=== PATIENT | male | born 1950 | race Caucasian/White ===

== ENCOUNTER 2016-10-18 14:20 | Emergency (ER) | payer OTHER ==
[~2016-10-18] VITALS: Ht 180.3 cm; Wt 138.3 kg
--- NOTE | ~2016-10-18 | EKG ---
[place], [place] ELECTROCARDIOGRAM REPORT NAME: ROBBIE DUQUE UNIT #: [id number] ROOM: DOCTOR: KB UNDERWOOD MD BIRTHDATE: [birth year] DOS: 10/18/2016 TIME: 15:23. Sinus rhythm with first degree AV block, low voltage precordial leads, non-specific T-wave flattening, abnormal electrocardiogram. KB UNDERWOOD MD CM:EKGRPT:ELECTROCARDIOGRAM REPORT 1107 1201 KB UNDERWOOD MD
[~2016-10-18 14:20] MED LIST: ASCRIPTIN1 TA1 PO; ASPIRIN81 M1 PO; CIPRO500 MG PO; COLACE100 MG PO; CRESTOR5 MG PO; DURAGESIC 50 M50 MCG TD; ERGOCALCIFER50000 IU PO; FLAGYL500 MG PO; FLEXERIL10 MG PO; GABAPENTIN TAB600 MG PO; GABAPENTIN400 M1 PO; GLIPIZIDE10 MG PO; HCTZ/LISINOPRIL1 TA1 PO; HCTZ/TRIAMTEREN1 TA3 PO; HYDROCODONE BIT1 T11 PO; IMDUR60 MG PO; ISOSORBIDE MONO60 MG PO; ISOSORBIDE30 MG PO; LANTUS100 U/ML SC; LASIX40 MG PO; LISINOPRIL/HCTZ1 TA1 PO; LOPRESSOR25 MG PO; MAG-OX 400400 MG PO; METFORMIN HCL1000 MG PO; METFORMIN500 MG PO; MOTRIN800 MG PO; NEURONTIN800 MG PO; NOVOLOG FLEX100 U/ML SC; OMEPRAZOLE D/R20 MG PO; PERCOCET 325 MG1 TA7 PO; PREDNICOT20 MG PO; PROZAC20 MG PO; VENLAFAXINE75 MG PO; VIBRAMYCIN100 MG PO; VICODIN 5/500 505 MG PO; VICODIN ES 7501 TAB PO; VITAMIN D1000 IU PO; [UNRECOGNIZED DRUG - OTHER] PO
[2016-10-18 14:34] VITALS: BP 167/88
[2016-10-18 15:21] LABS: BASO % 0.5 % (0.0-1.0); EOS # 0.4 10*3/uL (0.0-0.4); EOS % 4.7 % (1.0-4.0); HEMATOCRIT 40.7 % (42.0-52.0); HEMOGLOBIN 12.8 g/dl (14.0-18.0); LYMPH # 1.8 10*3/uL (1.3-4.4); LYMPH % 23.4 % (27.0-41.0); MEAN CELL VOLUME 84.4 fl (80.0-94.0); MEAN CORPUSCULAR HGB 26.6 pg (27.0-31.0); MEAN CORPUSCULAR HGB CONC 31.4 g/dl (33.0-37.0); MEAN PLATELET VOLUME 12.7 fl (9.6-12.3); MONO # 0.4 10*3/uL (0.1-1.0); MONO % 5.9 % (3.0-9.0); NEUT # 4.9 10*3/uL (2.3-7.9); NEUT % 65.1 % (47.0-73.0); PLATELET COUNT AUTOMATED 147 10*3/uL (130-400); RED BLOOD COUNT 4.82 10*6/uL (4.50-5.90); WHITE BLOOD COUNT 7.5 10*3/uL (4.8-10.8)
[2016-10-18 15:39] LABS: ALBUMIN 3.6 gm/dl (3.1-4.5); ALKALINE PHOSPHATASE 111 U/L (45-117); BILIRUBIN, TOTAL 0.6 mg/dl (0.2-1.0); BUN 15 mg/dl (7-24); CARBON DIOXIDE 36 mmol/L (21-32); CHLORIDE 101 mmol/L (98-107); EST GLOM FILT AFRICAN AMERICAN > 60 ml/min; GLUCOSE 114 mg/dL (65-99); MAGNESIUM 1.6 mg/dL (1.5-2.1); POTASSIUM 4.2 mmol/L (3.5-5.1); SGOT/AST 15 IU/L (3-35); SGPT/ALT 25 U/L (12-78); SODIUM 141 mmol/L (136-145)
[2016-10-18 15:40] LABS: TROPONIN I < 0.015 ng/ml (<0.045)
[2016-10-18 16:26] LABS: BILIRUBIN NEGATIVE (NEGATIVE); BLOOD NEGATIVE (NEGATIVE); CLARITY CLEAR (CLEAR); COLOR YELLOW (YELLOW); GLUCOSE NEGATIVE (NEGATIVE); KETONE TRACE (NEGATIVE); LEUKO ESTERASE NEGATIVE (NEGATIVE); NITRITE NEGATIVE (NEGATIVE); PROTEIN TRACE (NEGATIVE)
[2016-10-18 16:38] LABS: BACTERIA TRACE; MUCOUS 1+; RBC 0-2 rbc/hpf (0-2); URINE REFLEX COMMENT NO (NO); WBC 0-2 wbc/hpf (0-5)
== END 2016-10-18 17:26 | disposition left against medical advice (07) ==
LOC: ED 14:20
PROVIDERS: Family Medicine Adult Medicine
DX: R44.3 Hallucinations, unspecified (principal); E53.8 Deficiency of other specified B group vitamins; I25.10 Atherosclerotic heart disease of native coronary artery without angina pectoris; F32.9 Major depressive disorder, single episode, unspecified; K21.9 Gastro-esophageal reflux disease without esophagitis; E11.40 Type 2 diabetes mellitus with diabetic neuropathy, unspecified; E66.01 Morbid (severe) obesity due to excess calories; E11.65 Type 2 diabetes mellitus with hyperglycemia; E55.9 Vitamin D deficiency, unspecified; Z68.41 Body mass index [BMI] 40.0-44.9, adult; Z90.49 Acquired absence of other specified parts of digestive tract; Z79.82 Long term (current) use of aspirin; Z79.899 Other long term (current) drug therapy; Z88.0 Allergy status to penicillin; Z88.8 Allergy status to other drugs, medicaments and biological substances

== ENCOUNTER 2017-01-13 12:53 | Emergency (ER) | payer OTHER ==
[~2017-01-13] VITALS: Ht 180.3 cm; Wt 132.9 kg
[2017-01-13] MEDS ORDERED: CAPSAICIN42.5 GM T (13:20)
[2017-01-13] MEDS ORDERED: IMDUR SA60 M1 PO (13:20)
[2017-01-13] MEDS ORDERED: NEURONTIN300 MG PO (13:21)
[2017-01-13] MEDS ORDERED: PROZAC20 MG PO (13:21)
[2017-01-13] MEDS ORDERED: SYMBICORT1 AE1 INH (13:21)
[2017-01-13] MEDS ORDERED: VENTOLIN 02.5 MG/3 M INH (13:22)
[2017-01-13] MEDS ORDERED: CRESTOR5 MG PO (13:22)
[2017-01-13] MEDS ORDERED: OMEPRAZOLE D/R20 MG PO (13:23)
[2017-01-13] MEDS ORDERED: NOVOLOG FLEX100 U/ML SC (13:23)
[2017-01-13] MEDS ORDERED: LANTUS100 U/ML SC (13:24)
[2017-01-13] MEDS ORDERED: LASIX40 MG PO (13:24)
[2017-01-13] MEDS ORDERED: METFORMIN500 MG PO (13:25)
[2017-01-13] MEDS ORDERED: ASPIRIN81 M1 PO (13:25)
[2017-01-13] MEDS ORDERED: VITAMIN D31000 IU PO (13:25)
[2017-01-13] MEDS ORDERED: CINNAMON PLUS1 EACH PO (13:26)
[2017-01-13] MEDS ORDERED: COLACE100 MG PO (13:26)
[2017-01-13 14:08] LABS: BASO % 0.4 % (0.0-1.0); EOS # 0.4 10*3/uL (0.0-0.4); EOS % 4.1 % (1.0-4.0); HEMOGLOBIN 13.1 g/dl (14.0-18.0); IG # 0.1 10*3/uL (0.0-0.1); LYMPH # 1.5 10*3/uL (1.3-4.4); LYMPH % 14.4 % (27.0-41.0); MEAN CELL VOLUME 83.3 fl (80.0-94.0); MEAN CORPUSCULAR HGB 26.6 pg (27.0-31.0); MEAN PLATELET VOLUME 11.8 fl (9.6-12.3); MONO # 0.7 10*3/uL (0.1-1.0); MONO % 6.5 % (3.0-9.0); NEUT # 7.7 10*3/uL (2.3-7.9); NEUT % 73.9 % (47.0-73.0); PLATELET COUNT AUTOMATED 162 10*3/uL (130-400); RED BLOOD COUNT 4.92 10*6/uL (4.50-5.90); RED CELL DISTRI WIDTH 14.1 % (0-14.5); WHITE BLOOD COUNT 10.4 10*3/uL (4.8-10.8)
[2017-01-13 14:20] LABS: ALBUMIN 3.3 gm/dl (3.1-4.5); ALKALINE PHOSPHATASE 95 U/L (45-117); BILIRUBIN, TOTAL 1.6 mg/dl (0.2-1.0); BUN 15 mg/dl (7-24); CARBON DIOXIDE 31 mmol/L (21-32); CHLORIDE 98 mmol/L (98-107); EST GLOM FILT AFRICAN AMERICAN > 60 ml/min; GLUCOSE 90 mg/dL (65-99); POTASSIUM 3.9 mmol/L (3.5-5.1); SGOT/AST 17 IU/L (3-35); SGPT/ALT 25 U/L (12-78); SODIUM 137 mmol/L (136-145)
[2017-01-13 14:23] LABS: BILIRUBIN NEGATIVE (NEGATIVE); BLOOD NEGATIVE (NEGATIVE); CLARITY CLEAR (CLEAR); COLOR YELLOW (YELLOW); GLUCOSE NEGATIVE (NEGATIVE); KETONE NEGATIVE (NEGATIVE); LEUKO ESTERASE NEGATIVE (NEGATIVE); NITRITE NEGATIVE (NEGATIVE); PROTEIN NEGATIVE (NEGATIVE)
[2017-01-13 14:42] LABS: BACTERIA TRACE; RBC 0-2 rbc/hpf (0-2); WBC 0-2 wbc/hpf (0-5)
[2017-01-13 15:01] VITALS: BP 116/64
[2017-01-13] MEDS ORDERED: Motrin,Rufen800 MG PO (15:40)
[2017-01-13] MEDS ORDERED: LEVOFLOXACIN500 MG PO (15:51)
== END 2017-01-13 15:57 | disposition home or self-care (01) ==
LOC: ED 12:53
PROVIDERS: Emergency Medicine
DX: J18.1 Lobar pneumonia, unspecified organism (principal); N43.3 Hydrocele, unspecified; I10 Essential (primary) hypertension; I25.10 Atherosclerotic heart disease of native coronary artery without angina pectoris; E11.40 Type 2 diabetes mellitus with diabetic neuropathy, unspecified; K21.9 Gastro-esophageal reflux disease without esophagitis; E78.2 Mixed hyperlipidemia; Z79.4 Long term (current) use of insulin; Z88.0 Allergy status to penicillin; Z88.8 Allergy status to other drugs, medicaments and biological substances; Z79.82 Long term (current) use of aspirin; Z79.899 Other long term (current) drug therapy

== ENCOUNTER → 2017-01-24 | Outpatient (CLI) | payer OTHER ==
[~2017-01-24] MED LIST changes: +CAPSAICIN42.5 GM T; +CINNAMON PLUS1 EACH PO; +IMDUR SA60 M1 PO; +LEVOFLOXACIN500 MG PO; +Motrin,Rufen800 MG PO; +NEURONTIN300 MG PO; +SYMBICORT1 AE1 INH; +VENTOLIN 02.5 MG/3 M INH; +VITAMIN D31000 IU PO
[2017-01-24 15:08] LABS: BASO % 0.3 % (0.0-1.0); EOS # 0.4 10*3/uL (0.0-0.4); EOS % 3.9 % (1.0-4.0); HEMOGLOBIN 13.8 g/dl (14.0-18.0); IG # 0.1 10*3/uL (0.0-0.1); LYMPH # 1.7 10*3/uL (1.3-4.4); MEAN CELL VOLUME 84.3 fl (80.0-94.0); MEAN CORPUSCULAR HGB 27.1 pg (27.0-31.0); MEAN CORPUSCULAR HGB CONC 32.1 g/dl (33.0-37.0); MEAN PLATELET VOLUME 12.5 fl (9.6-12.3); MONO # 0.5 10*3/uL (0.1-1.0); NEUT # 7.4 10*3/uL (2.3-7.9); NEUT % 73.1 % (47.0-73.0); PLATELET COUNT AUTOMATED 175 10*3/uL (130-400); WHITE BLOOD COUNT 10.1 10*3/uL (4.8-10.8)
[2017-01-24 15:28] LABS: ALBUMIN 3.5 gm/dl (3.1-4.5); BILIRUBIN, TOTAL 0.6 mg/dl (0.2-1.0); BUN 17 mg/dl (7-24); CARBON DIOXIDE 34 mmol/L (21-32); CHLORIDE 95 mmol/L (98-107); EST GLOM FILT AFRICAN AMERICAN > 60 ml/min; GLUCOSE 193 mg/dL (65-99); POTASSIUM 4.1 mmol/L (3.5-5.1); SGOT/AST 14 IU/L (3-35); SGPT/ALT 27 U/L (12-78); SODIUM 140 mmol/L (136-145)
[2017-01-24 15:32] LABS: ALKALINE PHOSPHATASE 94 U/L (45-117)
== END | disposition home or self-care (01) ==
LOC: LAB 14:28 → CT 15:00
PROVIDERS: Urology
DX: D40.0 Neoplasm of uncertain behavior of prostate (principal); I10 Essential (primary) hypertension; N43.3 Hydrocele, unspecified; N50.819 Testicular pain, unspecified; M47.9 Spondylosis, unspecified

== ENCOUNTER 2017-02-21 03:57 | Inpatient (IN) | payer OTHER ==
[~2017-02-21] VITALS: Ht 180.3 cm; Wt 132.2 kg
[2017-02-21] VITALS (11 sets, daily range): BP systolic 102–150; BP diastolic 59–80
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
[2017-02-21 04:16] LABS: BASO # 0.1 10*3/uL (0.0-0.1); BASO % 0.6 % (0.0-1.0); EOS # 0.5 10*3/uL (0.0-0.4); EOS % 4.3 % (1.0-4.0); HEMATOCRIT 41.3 % (42.0-52.0); HEMOGLOBIN 13.4 g/dl (14.0-18.0); LYMPH # 2.6 10*3/uL (1.3-4.4); LYMPH % 24.3 % (27.0-41.0); MEAN CELL VOLUME 83.3 fl (80.0-94.0); MEAN CORPUSCULAR HGB CONC 32.4 g/dl (33.0-37.0); MEAN PLATELET VOLUME 12.5 fl (9.6-12.3); MONO # 0.6 10*3/uL (0.1-1.0); MONO % 5.5 % (3.0-9.0); NEUT % 64.9 % (47.0-73.0); PLATELET COUNT AUTOMATED 180 10*3/uL (130-400); RED BLOOD COUNT 4.96 10*6/uL (4.50-5.90); RED CELL DISTRI WIDTH 14.3 % (0-14.5); WHITE BLOOD COUNT 10.9 10*3/uL (4.8-10.8)
[2017-02-21 04:33] LABS: ALBUMIN 3.5 gm/dl (3.1-4.5); ALKALINE PHOSPHATASE 108 U/L (45-117); BILIRUBIN, TOTAL 0.8 mg/dl (0.2-1.0); BUN 14 mg/dl (7-24); CARBON DIOXIDE 31 mmol/L (21-32); CHLORIDE 99 mmol/L (98-107); EST GLOM FILT AFRICAN AMERICAN > 60 ml/min; GLUCOSE 173 mg/dL (65-99); MAGNESIUM 1.3 mg/dL (1.5-2.1); POTASSIUM 4.4 mmol/L (3.5-5.1); SGOT/AST 21 IU/L (3-35); SGPT/ALT 24 U/L (12-78); SODIUM 139 mmol/L (136-145)
[2017-02-21 04:34] LABS: TROPONIN I < 0.015 ng/ml (<0.045)
[2017-02-21] MEDS ORDERED: EUCERIN1 CRE T (06:34)
[2017-02-21] MEDS ORDERED: B121000 MCG/2 IM (06:39)
[2017-02-21] MEDS ORDERED: OXYGEN NAS (06:40)
[2017-02-21] MEDS ORDERED: VITAMIN D350000 UNIT PO ×2 (06:40→15:20)
[2017-02-21] MEDS ORDERED: IBUPROFEN400 MG PO (06:41)
[2017-02-21] MEDS ORDERED: ATIVAN1 MG PO (15:20)
[2017-02-21] MEDS ORDERED: INDOMETHACIN25 M1 PO (15:22)
[2017-02-21] MEDS ORDERED: LISINOPRIL10 M1 PO (15:23)
== END 2017-02-21 16:38 | disposition home or self-care (01) | DRG 194 ==
LOC: ED 03:57 → EDHOLD 04:56 → 4E 04:56
PROVIDERS: Emergency Medicine Emergency Medical Services
DX: J18.1 Lobar pneumonia, unspecified organism (principal); J96.10 Chronic respiratory failure, unspecified whether with hypoxia or hypercapnia; E11.42 Type 2 diabetes mellitus with diabetic polyneuropathy; I11.0 Hypertensive heart disease with heart failure; I50.9 Heart failure, unspecified; Z68.41 Body mass index [BMI] 40.0-44.9, adult; R07.89 Other chest pain; I25.10 Atherosclerotic heart disease of native coronary artery without angina pectoris; K21.9 Gastro-esophageal reflux disease without esophagitis; F41.9 Anxiety disorder, unspecified; F32.9 Major depressive disorder, single episode, unspecified; E11.40 Type 2 diabetes mellitus with diabetic neuropathy, unspecified; E11.618 Type 2 diabetes mellitus with other diabetic arthropathy; I25.118 Atherosclerotic heart disease of native coronary artery with other forms of angina pectoris; E55.9 Vitamin D deficiency, unspecified; E78.2 Mixed hyperlipidemia; E66.01 Morbid (severe) obesity due to excess calories; Z83.3 Family history of diabetes mellitus; Z84.89 Family history of other specified conditions; Z99.81 Dependence on supplemental oxygen; Z88.0 Allergy status to penicillin; Z88.1 Allergy status to other antibiotic agents; Z79.82 Long term (current) use of aspirin; Z79.4 Long term (current) use of insulin; Z79.84 Long term (current) use of oral hypoglycemic drugs; Z79.899 Other long term (current) drug therapy; Z90.49 Acquired absence of other specified parts of digestive tract; Z95.818 Presence of other cardiac implants and grafts

== ENCOUNTER 2017-03-23 05:43 | Emergency (ER) | payer OTHER ==
[~2017-03-23] VITALS: Ht 180.3 cm; Wt 133.8 kg
--- NOTE | ~2017-03-23 | EKG ---
[place], [place] ELECTROCARDIOGRAM REPORT NAME: ROBBIE DUQUE UNIT #: [id number] ROOM: DOCTOR: ZHANG MCNEAL,MAICO BIRTHDATE: [birth year] DOS: 03/23/2017 TIME: 6:27 a.m. CONCLUSION: Normal sinus rhythm. MAICO HOLCOMB MD CM:EKGRPT:ELECTROCARDIOGRAM REPORT 1240 1451 MAICO HOLCOMB MD
[~2017-03-23 05:43] MED LIST changes: +ATIVAN1 MG PO; +B121000 MCG/2 IM; +EUCERIN1 CRE T; +IBUPROFEN400 MG PO; +INDOMETHACIN25 M1 PO; +LISINOPRIL10 M1 PO; +OXYGEN NAS; -VITAMIN D31000 IU PO; +VITAMIN D31000 UNI1 PO; +VITAMIN D350000 UNIT PO
[2017-03-23 06:31] LABS: BASO % 0.5 % (0.0-1.0); EOS # 0.4 10*3/uL (0.0-0.4); EOS % 4.8 % (1.0-4.0); HEMOGLOBIN 13.4 g/dl (14.0-18.0); LYMPH # 1.8 10*3/uL (1.3-4.4); LYMPH % 22.6 % (27.0-41.0); MEAN CORPUSCULAR HGB 26.8 pg (27.0-31.0); MEAN CORPUSCULAR HGB CONC 31.9 g/dl (33.0-37.0); MEAN PLATELET VOLUME 11.8 fl (9.6-12.3); MONO # 0.5 10*3/uL (0.1-1.0); MONO % 6.1 % (3.0-9.0); NEUT # 5.3 10*3/uL (2.3-7.9); NEUT % 65.6 % (47.0-73.0); PLATELET COUNT AUTOMATED 147 10*3/uL (130-400); RED CELL DISTRI WIDTH 14.2 % (0-14.5); WHITE BLOOD COUNT 8.1 10*3/uL (4.8-10.8)
[2017-03-23 06:40] LABS: ACT PARTIAL THROMBO TIME 24.5 SECONDS (20.8-31.5)
[2017-03-23 06:50] LABS: ALBUMIN 3.5 gm/dl (3.1-4.5); ALKALINE PHOSPHATASE 112 U/L (45-117); BUN 20 mg/dl (7-24); CHLORIDE 100 mmol/L (98-107); CREATININE 1.02 mg/dL (0.70-1.30); MAGNESIUM 1.5 mg/dL (1.5-2.1); POTASSIUM 4.9 mmol/L (3.5-5.1); SGOT/AST 14 IU/L (3-35); SGPT/ALT 23 U/L (12-78); SODIUM 138 mmol/L (136-145); TOTAL PROTEIN 6.9 gm/dL (6.4-8.2)
[2017-03-23 06:52] LABS: TROPONIN I < 0.015 ng/ml (<0.045)
[2017-03-23 06:58] VITALS: BP 136/63
== END 2017-03-23 08:24 | disposition home or self-care (01) ==
LOC: ED 05:43
PROVIDERS: Student in an Organized Health Care Education/Training Program
DX: I15.9 Secondary hypertension, unspecified (principal); I25.10 Atherosclerotic heart disease of native coronary artery without angina pectoris; E11.40 Type 2 diabetes mellitus with diabetic neuropathy, unspecified; K21.9 Gastro-esophageal reflux disease without esophagitis; E78.2 Mixed hyperlipidemia; Z88.0 Allergy status to penicillin; Z88.8 Allergy status to other drugs, medicaments and biological substances; Z79.82 Long term (current) use of aspirin; Z79.899 Other long term (current) drug therapy; Z79.4 Long term (current) use of insulin

== ENCOUNTER 2017-03-26 15:29 | Inpatient (IN) | payer OTHER ==
[~2017-03-26] VITALS: Ht 180.3 cm; Wt 134.8 kg
--- NOTE | ~2017-03-26 | EKG ---
[place], [place] ELECTROCARDIOGRAM REPORT NAME: ROBBIE DUQUE UNIT #: [id number] ROOM: 415 DOCTOR: JOSEPH RODRIGUEZ MD,KENA BIRTHDATE: [birth year] DOS: 03/26/2017 ELECTROCARDIOGRAM The procedure was done on 03/26/2017 at 1623 hours. Normal sinus rhythm was noted with a heart rate of 79 beats per minute. Mild nonspecific ST-T changes were noted in II, III and aVF leads of unknown clinical significance. Otherwise, the electrocardiogram was noted as normal. KENA RUIZ MD CM:EKGRPT:ELECTROCARDIOGRAM REPORT 1210 1228 KENA RODRIGUEZ MD
[2017-03-26 15:40] VITALS: BP 119/76
[2017-03-26 16:38] LABS: BASO # 0.1 10*3/uL (0.0-0.1); BASO % 0.6 % (0.0-1.0); EOS # 0.4 10*3/uL (0.0-0.4); EOS % 4.1 % (1.0-4.0); HEMATOCRIT 39.5 % (42.0-52.0); HEMOGLOBIN 12.5 g/dl (14.0-18.0); LYMPH # 2.2 10*3/uL (1.3-4.4); LYMPH % 23.5 % (27.0-41.0); MEAN CELL VOLUME 84.2 fl (80.0-94.0); MEAN CORPUSCULAR HGB 26.7 pg (27.0-31.0); MEAN CORPUSCULAR HGB CONC 31.6 g/dl (33.0-37.0); MEAN PLATELET VOLUME 12.4 fl (9.6-12.3); MONO # 0.6 10*3/uL (0.1-1.0); MONO % 6.2 % (3.0-9.0); NEUT # 6.2 10*3/uL (2.3-7.9); NEUT % 65.2 % (47.0-73.0); PLATELET COUNT AUTOMATED 162 10*3/uL (130-400); RED BLOOD COUNT 4.69 10*6/uL (4.50-5.90); WHITE BLOOD COUNT 9.5 10*3/uL (4.8-10.8)
[2017-03-26 16:50] LABS: ACT PARTIAL THROMBO TIME 23.5 SECONDS (20.8-31.5)
[2017-03-26 16:57] LABS: ALBUMIN 3.5 gm/dl (3.1-4.5); ALKALINE PHOSPHATASE 103 U/L (45-117); BUN 17 mg/dl (7-24); CHLORIDE 99 mmol/L (98-107); CKMB 1.3 ng/ml (0.5-3.6); CPK 58 U/L (39-308); CREATININE 0.93 mg/dL (0.70-1.30); MAGNESIUM 1.4 mg/dL (1.5-2.1); POTASSIUM 4.3 mmol/L (3.5-5.1); SGOT/AST 21 IU/L (3-35); SGPT/ALT 26 U/L (12-78); SODIUM 142 mmol/L (136-145); TOTAL PROTEIN 6.9 gm/dL (6.4-8.2)
[2017-03-26 17:02] LABS: BILIRUBIN NEGATIVE (NEGATIVE); BLOOD NEGATIVE (NEGATIVE); CLARITY CLEAR (CLEAR); COLOR YELLOW (YELLOW); GLUCOSE NEGATIVE (NEGATIVE); KETONE NEGATIVE (NEGATIVE); LEUKO ESTERASE NEGATIVE (NEGATIVE); NITRITE NEGATIVE (NEGATIVE); UROBILINOGEN 0.2 E.U./dl (0.2-1.0)
[2017-03-26 17:06] LABS: ACETAMINOPHEN (TYLENOL) < 2.0 ug/ml (10-30); ETHYL ALCOHOL < 3.0 mg/dl (<3); TROPONIN I < 0.015 ng/ml (<0.045)
[2017-03-26 17:12] LABS: URINE AMPHETAMINES < 1000 (1000ng/ml); URINE BARBITURATES < 200 (200ng/ml); URINE BENZODIAZEPINES < 200 (200ng/ml); URINE CANNABINOIDS (THC) < 50 (50ng/ml); URINE COCAINE < 300 (300ng/ml); URINE METHADONE < 300 (300ng/ml); URINE OPIATES < 300 (300ng/ml)
[2017-03-26 17:21] LABS: BACTERIA TRACE; RBC 0-2 rbc/hpf (0-2); WBC 0-2 wbc/hpf (0-5)
[2017-03-26 17:23] LABS: URINE PHENCYCLIDINE < 25 (25ng/ml)
[2017-03-26 18:52] VITALS: BP 137/75
--- NOTE | 2017-03-26 19:07 | NUR ---
REPORT TO CLAUDIO MONTANO. FLOOR REPORT WAS CALLED TO KOMAL PUCKETT AT 1827. AFTER HANGING IV MEDS ON PT AND HELPING PT WITH A FEW THINGS,TIME CAME TO 1900 AND [facility] FLOOR REQUESTED WE COULD WAIT TIL 193 TO TAKE PT UPSTAIRS.--NETTIE HYDE RN
--- NOTE | 2017-03-26 19:30 | NUR ---
A 66, admitted to , under the services of CIERRA Luevano DO with a diagnosis of ATAXIA,HTN. Chief complaint is DIZZINESS. Patient arrived via stretcher from ER. Monitor applied. Initial assessment completed. Vital signs taken and recorded. CIERRA LUEVANO DO notified of admission to the unit. Orders received. See assessment for past medical history, medications and allergies. Patient and/or family oriented to unit. [facility] visitation policy reviewed. Clothing/patient valuable form completed. ARCADIO TOVAR
[2017-03-26 20:00] VITALS: BP 137/75; BP 152/85
[2017-03-26] MEDS ORDERED: INDOMETHACIN25 M1 PO (20:09)
[2017-03-26] MEDS ORDERED: FUROSEMIDE40 MG PO (20:11)
[2017-03-26] MEDS ORDERED: VITAMIN D22000 UNIT PO (20:16)
--- NOTE | 2017-03-26 20:27 | NUR ---
MED REC COMPLETED USING A VA LIST AND PATIENT.
[2017-03-26 21:45] VITALS: BP 170/81
--- NOTE | 2017-03-26 22:00 | NUR ---
DR VELAZQUEZ AWARE OF PATIENT BEING DIZZY AND LIGHTHEADED TRANSFERRING FROM LAYING TO SITTING. PATIENT ALMOST FELL BACKWARDS ON THE BED DUE TO BEING DIZZY. ORDER FOR LITER BOLUS AT THIS TIME
--- NOTE | 2017-03-26 22:10 | NUR ---
SPOKE WITH DR VELAZQUEZ ABOUT PATIENT'S BLOOD PRESSURE BEING ELEVATED BEFORE GIVING THE LITER BOLUS. STATES HE WILL CANCEL THE BOLUS AT THIS TIME
--- NOTE | 2017-03-26 22:24 | NUR ---
24 HR chart check completed.
[2017-03-27] VITALS (9 sets, daily range): BP systolic 104–188; BP diastolic 57–86
--- NOTE | 2017-03-27 00:36 | NUR ---
DR VELAZQUEZ AWARE OF PATIENT COMPLAINING OF TOES FEELING "SWOLLEN". EDEMA NOTED IN TOES ON BILATERAL FEET. NO EDEMA NOTED IN ANKLES OR LEGS. ORDER TO TURN FLUIDS OFF AT THIS TIME
--- NOTE | 2017-03-27 00:58 | NUR ---
PATIENT IV FLUIDS OFF. TEDS AND SLIP PROOF SOCKS ON. PATIENT SITTING UP IN RECLINER CHAIR AT BEDSIDE WATCHING TV. OXYGEN INTACT. AMBULATED FROM BED TO CHAIR WITH THIS RN. PT C/O LIGHTHEADEDNESS UPON STANDING. CHAIR LOCKED, BED IN LOWEST POSITION, CALL LIGHT IN REACH
--- NOTE | 2017-03-27 01:59 | NUR ---
DR VELAZQUEZ AWARE OF PATIENT C/O ANXIOUSNESS AND SHAKINESS. PATIENT ASKING ABOUT HIS HOME ATIVAN. ORDER TO CONTINUE ATIVAN AT THIS TIME
--- NOTE | 2017-03-27 02:20 | NUR ---
PATIENT MEDICATED WITH PRN ATIVAN FOR ANXIOUSNESS. REQUESTING JORGE HOSE OFF AT THIS TIME
[2017-03-27 06:47] LABS: BASO % 0.5 % (0.0-1.0); EOS # 0.4 10*3/uL (0.0-0.4); EOS % 4.6 % (1.0-4.0); HEMATOCRIT 38.2 % (42.0-52.0); HEMOGLOBIN 12.2 g/dl (14.0-18.0); LYMPH % 23.7 % (27.0-41.0); MEAN CELL VOLUME 85.7 fl (80.0-94.0); MEAN CORPUSCULAR HGB 27.4 pg (27.0-31.0); MEAN CORPUSCULAR HGB CONC 31.9 g/dl (33.0-37.0); MEAN PLATELET VOLUME 12.3 fl (9.6-12.3); MONO # 0.6 10*3/uL (0.1-1.0); MONO % 6.6 % (3.0-9.0); NEUT # 5.3 10*3/uL (2.3-7.9); NEUT % 64.2 % (47.0-73.0); PLATELET COUNT AUTOMATED 132 10*3/uL (130-400); RED BLOOD COUNT 4.46 10*6/uL (4.50-5.90); RED CELL DISTRI WIDTH 14.2 % (0-14.5); WHITE BLOOD COUNT 8.3 10*3/uL (4.8-10.8)
[2017-03-27 06:53] LABS: BUN 17 mg/dl (7-24); CHLORIDE 99 mmol/L (98-107); CHOLESTEROL 125 mg/dL (<200); CREATININE 0.86 mg/dL (0.70-1.30); HDL CHOLESTEROL 28 mg/dl (40-60); LDL CHOLESTEROL 48 mg/dL (9-159); MAGNESIUM 1.9 mg/dL (1.5-2.1); PHOSPHOROUS 3.6 mg/dL (2.5-4.9); POTASSIUM 4.2 mmol/L (3.5-5.1); SODIUM 142 mmol/L (136-145); TRIGLYCERIDES 243 mg/dl (<150); VLDL CHOLESTEROL 49 mg/dL (6-40)
--- NOTE | 2017-03-27 08:52 | NUR ---
PHYSICAL THERAPY PAtient with Doctors at this time. Jen Barron,PT
--- NOTE | 2017-03-27 09:00 | NUR ---
Clinical Program Coordinator in to talk to patient. Patient states lives at home with alone. There are few steps in the home. Physician: [facility] Patient's level of ADLs: MINIMAL ASSIST Patient has working utilities: all working DME: cane, walker, home oxygen, portable tanks, nebulizer Follow-up physician's appointment after d/c: will be made by hospitalist nurse director upon discharge Does patient want to access PORTAL?: no Discharge plan discussed with patient, patient lives at home alone, has help from his ex , patient states he has all of the equipement he needs at home, ex present, she states patient will be going back home when able and denies any home needs. MARLEEN EVANS
--- NOTE | 2017-03-27 10:00 | NUR ---
REVIEWED MED LIST WITH PT, PT UNSURE OF ALL MEDS AND DOSAGES.
--- NOTE | 2017-03-27 11:32 | NUR ---
patient wanted [facility] billed [facility] stay, notified business office, patient also has [employer] as secondary insurance, insurance demos given to automated system emailed corporate fax team fax number for clinicals
--- NOTE | 2017-03-27 11:43 | NUR ---
DR WILLIS IN TO SEE PT AT THIS TIME.
--- NOTE | 2017-03-27 12:45 | NUR ---
case management received a call from jacinta Mahajandirector internal communications at [place], she requested patient's information be faxed, faxed patient's information, per Keyshawn, no beds available at [facility] today
--- NOTE | 2017-03-27 12:45 | NUR ---
PHYSICAL THERAPY PAtient evaluated on 4, full evaluation to follow. Continue with PT as per plan of care with fall, blood pressure and vertigo difficulties precuations. Will require SNF versus in-patient rehab for impaired mobility. PAtient is moderate complexity via chart review, tests and evaluation: 26226. Thank you for this referral. Jen Barron;OliverioT
--- NOTE | 2017-03-27 14:00 | NUR ---
SPOKE WITH DR LANDAVERDE REGARDING PT'S Q2 BP IN BILATERAL ARMS OF L-180/81, R- 170/71. NO NEW ORDERS.
--- NOTE | 2017-03-27 16:53 | NUR ---
CALLED TO NOTIFY DR LANDAVERDE OF PT'S Q2 BP, L ARM- 159/57, R-173/74. STATES IT IS OK TO START DOING BP NOW Q4, THEY DON'T NEED TO BE CALLED WITH EACH RESULT.
--- NOTE | 2017-03-27 20:00 | NUR ---
PATIENT SITTING IN CHAIR AT BEDSIDE. NO NEEDS MADE. NO S/S OF DISTRESS. BED IN LOWEST POSITION, CALL LIGHT IN REACH
--- NOTE | 2017-03-27 23:42 | NUR ---
MEDICATED WITH PRN ATIVAN FOR C/O ANXIOUSNESS
[2017-03-27] MEDS ORDERED: PROZAC40 M1 PO (23:48)
[2017-03-28] VITALS: BP 138/85; BP 172/80
--- NOTE | 2017-03-28 01:48 | NUR ---
PATIENT RESTING IN BED WITH NO S/S OF DISTRESS/ RESPS EASY AND REGULAR. MEDICATION SEEMS EFFECTIVE
[2017-03-28 06:13] LABS: BASO # 0.1 10*3/uL (0.0-0.1); BASO % 0.6 % (0.0-1.0); EOS # 0.4 10*3/uL (0.0-0.4); EOS % 4.5 % (1.0-4.0); HEMATOCRIT 40.4 % (42.0-52.0); HEMOGLOBIN 13.1 g/dl (14.0-18.0); LYMPH # 1.8 10*3/uL (1.3-4.4); MEAN CELL VOLUME 85.4 fl (80.0-94.0); MEAN CORPUSCULAR HGB 27.7 pg (27.0-31.0); MEAN CORPUSCULAR HGB CONC 32.4 g/dl (33.0-37.0); MEAN PLATELET VOLUME 12.1 fl (9.6-12.3); MONO # 0.5 10*3/uL (0.1-1.0); MONO % 5.5 % (3.0-9.0); NEUT # 6.7 10*3/uL (2.3-7.9); PLATELET COUNT AUTOMATED 147 10*3/uL (130-400); RED BLOOD COUNT 4.73 10*6/uL (4.50-5.90); RED CELL DISTRI WIDTH 14.1 % (0-14.5); WHITE BLOOD COUNT 9.6 10*3/uL (4.8-10.8)
[2017-03-28 06:44] LABS: BUN 13 mg/dl (7-24); CHLORIDE 98 mmol/L (98-107); POTASSIUM 4.2 mmol/L (3.5-5.1); SODIUM 138 mmol/L (136-145)
[2017-03-28 06:46] LABS: CREATININE 0.84 mg/dL (0.70-1.30)
[2017-03-28 08:00] VITALS: BP 152/78; BP 154/86
--- NOTE | 2017-03-28 09:07 | NUR ---
PHYSICAL THERAPY Humberto seen this AM 1:1 for his physical therapy session. Pt's BP in his right arm was 154/86, left arm 152/79. Transfer supine/sit with slight vertigo with transfer, sit/stand standing balance up on wheeled walker MOD A X 1. Gait 8' to pt's bedside chair W/W and MOD A X 1, and sit. Then sit/stand up on wheeled walker for standing balance and marching in place to tolerance MIN A X 1, sit to rest. Followed by gait with wheeled walker 12' X 1, on 2 L o2, was not SOB, MOD A X 1, no LOB slight vertigo which he said is a little better this morning, Pt up in his bedside chair, call light no complaint. RYAN SALDANA SEWING LINE BALER.
--- NOTE | 2017-03-28 10:36 | NUR ---
Patient and asked for a referral to be made to [facility]. Contacted [facility] and faxed referral. waiting on acceptance.
--- NOTE | 2017-03-28 10:41 | NUR ---
case management visits with patient and ex , discussed with them physical therapy recommendations of a [facility] [place] [facility] for [facility], patient and ex are inagreement, they chose [facility], cyber policy and strategy planner will send referral to [facility]. patient will also need an insurance precert prior to discharge
[2017-03-28 12:00] VITALS: BP 135/64; BP 148/59
--- NOTE | 2017-03-28 12:48 | NUR ---
PHYSICAL THERAPY Back this PM to gait Humberto and Pt was up in his bedside chair and was very sleepy wanting to fall asleep, present. B/P 138/64, transfer sit/stand MOD A X 1, standing balance with wheeled walker MIN A X 1, Gait with W/W 14' X 1, MOD A X 1, into marching in place in front of his bedside chair MOD A X 1, and no LOB. Humberto just very sleepy and wanting to sleep right now, Pt with call light and going to stay, treatment time 17 min. RYAN SALDANA PECAN SHELLER.
--- NOTE | 2017-03-28 13:52 | NUR ---
Occupational Therapy evaluation completed this date on 4 with full eval to follow. Ex- present upon arrival and assisted with interview questions as patient was lethargic and slow to respond. Precautions include fall risk, neuropathy both feet,impaired blood pressure; high and low,high complexity level. IV UE. Recommend OT per POC and SNF upon d/c to enable return home. Thank you for this referral. Cheryl White OTR/l
--- NOTE | 2017-03-28 14:48 | NUR ---
[facility] accepted this patient, all information faxed, starting precert. Waiting for auth.
--- NOTE | 2017-03-28 14:58 | NUR ---
PASS/RR completed online in [employer] system
[2017-03-28 16:00] VITALS: BP 132/68
--- NOTE | 2017-03-28 17:32 | NUR ---
IV INFLITRATED AFTER CT SCAN. SITE REMOVED. PT ASKED THAT NEW IV NOT BE PLACED. DR LANDAVERDE CALLED AND STATES OK TO LEAVE IV OUT.
[2017-03-28 20:00] VITALS: BP 147/64
--- NOTE | 2017-03-28 20:00 | NUR ---
AAOX3 RESTING IN BED WITH HOB SLIGHTLY ELEVATED. SKIN WARM & DRY. 02 INTACT AT 2 LITERS VIA NASAL CANNULA. LUNGS CLEAR; NO COUGH NOTED. NO HEP LOCK. PT. STATES THAT HE IS VOIDING WITHOUT DIFFICULTY & HAD 2 BM'S TODAY. NO DISTRESS NOTED; CALL LIGHT WITHIN REACH.
--- NOTE | 2017-03-28 23:19 | NUR ---
MEDICATED WITH ATIVAN FOR ANXIETY PER PT'S REQUEST/M.D. ORDERS.
[2017-03-29] VITALS: BP 161/79
--- NOTE | 2017-03-29 00:30 | NUR ---
RESTING; ATIVAN GIVEN EARLIER APPARENTLY EFFECTIVE.
[2017-03-29 05:00] VITALS: BP 155/83
--- NOTE | 2017-03-29 05:30 | NUR ---
BLOOD SUGAR 162.
[2017-03-29 08:00] VITALS: BP 164/81
--- NOTE | 2017-03-29 09:00 | NUR ---
case management visits with patient, patient was referred to [facility], waiting on precert
--- NOTE | 2017-03-29 10:11 | NUR ---
PHYSICAL THERAPY Humberto seen this AM 1:1 for his therapy session. Pt moved to 428-1 now. Said that he was feeling a little better today. Transfer supine/sit MIN A X 1, sitting balance X 6 min supervision x 1, with improvement in his vertigo. Sit/stand and standing balance with wheeled walker X 2 min with CGA X 1. Followed by gait 19' X 2, with one sitting rest and MOD BIOINFORMATICS COMPUTER SCIENTIST X 1, with W/W and verbal cueing for gait, walker safety and turns. Pt up in his bedside chair followed by act Ex to bilateral LE of marching, LAQ's, ankle pumps with cueing for each Ex working in 20 reps each, treatment time 26 min. RYAN SALDANA LIVESTOCK NUTRITION TERRITORY MANAGER.
[2017-03-29 12:00] VITALS: BP 176/86
--- NOTE | 2017-03-29 14:35 | NUR ---
Patient seen for 1:1 this date 20 minutes with present.patient identified by name and date of this date. Patient completed bed mobility supine to sit EOB with head of bed in upright position SBA use bed rail and verbal cues proper foot position seated EOB for increase stabilty. Patient completed BUE AROM ther ex all planes x 15 reps 7 exercises with verbal cues purse lip breathing. Patient completed Bilateral trunk lateral leans x 10 reps each side with c/o fatigue. Patient declined trunk flexion/extension stating that he gets dizzy with forward motion. Patient demonstrated F+ trunk balance this date. Eli RODRIGUEZ/Viola Completed activity to tolerance. Continue towards plan of care.
--- NOTE | 2017-03-29 14:50 | NUR ---
Still no authorization for correction stay. Waiting on auth for precert.
[2017-03-29 16:00] VITALS: BP 162/78
[2017-03-29 20:00] VITALS: BP 153/66
--- NOTE | 2017-03-29 20:15 | NUR ---
SITTING UP IN BED WITH HOB ELEVATED. NO HEP LOCK. LUNGS AT THIS TIME WITH A DRY OCCASIONAL COUGH NOTED. ABDOMEN OBESE WITH NORMOACTIVE BOWEL SOUNDS. EDEMA NOTED TO BILATERAL LOWER EXTREMITIES. PT. VOICES NO C/O PAIN OR DISCOMFORT AT THIS TIME. CALL LIGHT WITHIN REACH.
--- NOTE | 2017-03-29 21:20 | NUR ---
BLOOD SUGAR 272; COVERAGE GIVEN PER EMAR.
[2017-03-30] VITALS: BP 153/69
--- NOTE | 2017-03-30 01:44 | NUR ---
MEDICATED WITH ATIVAN PER PT'S REQUEST.
--- NOTE | 2017-03-30 04:00 | NUR ---
RESTING IN BED WITH EYES CLOSED. ATIVAN GIVEN EARLIER APPARENTLY EFFECTIVE.
[2017-03-30 08:00] VITALS: BP 156/88
--- NOTE | 2017-03-30 08:00 | NUR ---
OOB IN RECLINER RESTING WITH EYES CLOSED. AWAKENS TO VOICE. NO C/O. NO S/S OF DISTRESS. SEE ASSESS. WILL CONT TO MONITOR. CALL LIGHT IN REACH. LABS REVIEWED.
[2017-03-30 12:00] VITALS: BP 182/91
[2017-03-30 15:02] VITALS: BP 130/72
[2017-03-30 17:18] VITALS: BP 163/71
[2017-03-30 20:00] VITALS: BP 159/70
[2017-03-31] VITALS (8 sets, daily range): BP systolic 117–150; BP diastolic 62–72
--- NOTE | 2017-03-31 02:19 | NUR ---
PATIENT MEDICATED WITH ATIVAN AT 0128 FOR COMPLAINTS OF ANXIETY WITH EFFECTIVE RESULTS NOTED. RESTING IN BED WITH EYES CLOSED AT THIS TIME. NO SIGNS OR SYMPTOMS OF DISTRESS NOTED. WILL CONTINUE TO MONITOR. CALL LIGHT IN REACH.
[2017-03-31 06:53] LABS: BASO % 0.4 % (0.0-1.0); EOS # 0.4 10*3/uL (0.0-0.4); EOS % 4.1 % (1.0-4.0); HEMATOCRIT 40.9 % (42.0-52.0); HEMOGLOBIN 12.9 g/dl (14.0-18.0); LYMPH # 1.9 10*3/uL (1.3-4.4); MEAN CELL VOLUME 84.9 fl (80.0-94.0); MEAN CORPUSCULAR HGB 26.8 pg (27.0-31.0); MEAN CORPUSCULAR HGB CONC 31.5 g/dl (33.0-37.0); MEAN PLATELET VOLUME 12.4 fl (9.6-12.3); MONO # 0.6 10*3/uL (0.1-1.0); MONO % 6.9 % (3.0-9.0); NEUT % 67.2 % (47.0-73.0); PLATELET COUNT AUTOMATED 146 10*3/uL (130-400); RED BLOOD COUNT 4.82 10*6/uL (4.50-5.90); RED CELL DISTRI WIDTH 14.2 % (0-14.5); WHITE BLOOD COUNT 8.9 10*3/uL (4.8-10.8)
[2017-04-01] VITALS: BP 154/64
--- NOTE | 2017-04-01 03:47 | NUR ---
Shift chart check completed.
[2017-04-01 08:00] VITALS: BP 137/64
--- NOTE | 2017-04-01 09:00 | NUR ---
PHYSICAL THERAPY Mr Perez was seen this AM 1:1 for his physical therapy treatment and doing better. With Pt on room air o2 87%, after gait on portable o2 at 2 L in sitting o2 96%. Transfer supine/sit, sitting balance CG X 1, sit/stand and standing balance MIN A X 1. Gait total 80' X 1, with wheeled walker, portable o2 at 2 L and MOD A X 1, no LOB and verbal cueing for gait safety. Pt up in his bedside chair followed by going over act EX to bilateral LE of marching, LAQ's and ankle pumps followed by his breakfast and having no complaints. RYAN SALDANA DIGITAL STRATEGIST SENIOR MANAGER.
--- NOTE | 2017-04-01 09:17 | NUR ---
Patient seen for OT this date 30 minutes. Patient identified by name and date of . Patient completed functional xfer training that included sit to stand from foster chair CGA with min verbal cues proper hand placmement, completed functional ambualtion use FWW to bathroom CGA no c/o dizziness and completed toilet xfer with use grabbar CGA with min verbal cues safety use AD. Patient reports has a raised toilet seat with handles at home. Completed ambulation use FWW bathroom to foster chair CGA with min verbal cues proper hand placement stand to sit. Patient demonstrated stand tolerance approx 2 min this date with no c/o dizziness with use FWW support. Patient completed ADL training included donning/doffing gown Maria Del Carmen to tie and completes LB dressing donning personal shorts CGA with use FWW to support self with standing componants of task. Patient unable to reach B feet doff/stas socks with education AE for increase I with task. Patient reports has a sock aid at home and is familiar with use. Patient required verbal cues michael cannon Continue towards plan of care. Eli RODRIGUEZ/Viola
--- NOTE | 2017-04-01 09:32 | NUR ---
case management visits with patient, patient waiting on precert to go to [facility], case management will follow
--- NOTE | 2017-04-01 11:00 | NUR ---
Faxed required updates for precert to [facility], still waiting on auth
[2017-04-01 12:00] VITALS: BP 151/63
--- NOTE | 2017-04-01 13:58 | NUR ---
Received authorization for patient to go to [facility]. Daughter Rebecca stated she will transport. Can go when discharged.
--- NOTE | 2017-04-01 14:38 | NUR ---
PATIENT HAVING MULTIPLE PAC'S IRREGULAR, MATILDA ROMAELIZA WAS NOTIFIED THAT PATIENT MAY HAVE POSSIBLY WENT INTO AFIB D/T MANY P WAVES NOT VISIBLE AND RATE IRREGULAR. STAT EKG OBTAINED, SINUS ARRHYTHMIA NOTED AT THE TIME OF EKG. RATE CONTINUES TO BE IRREGULAR, PATIENT IS ASYMPTOMATIC.
--- NOTE | 2017-04-01 16:43 | NUR ---
REPORT CALLED TO RECEIVING NURSE AT [facility].
--- NOTE | 2017-04-01 16:55 | NUR ---
PATIENT DISCHARGED TO [facility] BY WHEELCHAIR, ACCOMPANIED BY [facility], FOR TRANSPORT TO [facility] WITH HIS BY PRIVATE VEHICLE. DISCHARGE INSTRUCTIONS/PACKET IN CARE OF PATIENT.
--- NOTE | 2017-04-02 07:44 | NUR ---
PHYSICAL THERAPY CO-SIGN I approve of the Phyical Therapy notes written above. GEORGI BHATT PT
== END 2017-04-01 16:55 | disposition other institution (70) | DRG 305 ==
LOC: ED 15:29 → EDHOLD 17:55 → 4E 17:55
PROVIDERS: Internal Medicine; Student in an Organized Health Care Education/Training Program; ADMIT Emergency Medicine
DX: I16.0 Hypertensive urgency (principal); E87.3 Alkalosis; J96.10 Chronic respiratory failure, unspecified whether with hypoxia or hypercapnia; Z68.41 Body mass index [BMI] 40.0-44.9, adult; E83.42 Hypomagnesemia; D64.9 Anemia, unspecified; I25.10 Atherosclerotic heart disease of native coronary artery without angina pectoris; I10 Essential (primary) hypertension; K21.9 Gastro-esophageal reflux disease without esophagitis; E11.65 Type 2 diabetes mellitus with hyperglycemia; E53.8 Deficiency of other specified B group vitamins; F32.9 Major depressive disorder, single episode, unspecified; E11.40 Type 2 diabetes mellitus with diabetic neuropathy, unspecified; E66.01 Morbid (severe) obesity due to excess calories; E78.5 Hyperlipidemia, unspecified; J44.9 Chronic obstructive pulmonary disease, unspecified; Z99.81 Dependence on supplemental oxygen; Z88.0 Allergy status to penicillin; Z79.4 Long term (current) use of insulin; Z88.1 Allergy status to other antibiotic agents; Z79.899 Other long term (current) drug therapy; Z79.82 Long term (current) use of aspirin; Z79.84 Long term (current) use of oral hypoglycemic drugs; Z90.49 Acquired absence of other specified parts of digestive tract; Z83.3 Family history of diabetes mellitus

== ENCOUNTER 2018-11-20 16:25 | Emergency (ER) | payer OTHER ==
[~2018-11-20] VITALS: Ht 180.3 cm; Wt 136.1 kg
[~2018-11-20 16:25] MED LIST changes: +FUROSEMIDE40 MG PO; +LANTUS SOL100 UNIT/1 SQ; +NOVOLOG FL100 UNIT/2 SC; +PROZAC40 M1 PO; +VITAMIN D22000 UNIT PO
[2018-11-20 16:30] VITALS: BP 140/89
== END 2018-11-20 19:45 | disposition home or self-care (01) ==
LOC: ED 16:25
DX: S93.402A Sprain of unspecified ligament of left ankle, initial encounter (principal); R60.0 Localized edema; I25.10 Atherosclerotic heart disease of native coronary artery without angina pectoris; J44.9 Chronic obstructive pulmonary disease, unspecified; K21.9 Gastro-esophageal reflux disease without esophagitis; I10 Essential (primary) hypertension; E66.01 Morbid (severe) obesity due to excess calories; E11.40 Type 2 diabetes mellitus with diabetic neuropathy, unspecified; Z88.0 Allergy status to penicillin; Z88.8 Allergy status to other drugs, medicaments and biological substances; Z79.899 Other long term (current) drug therapy; Z79.82 Long term (current) use of aspirin; Z68.41 Body mass index [BMI] 40.0-44.9, adult; Z99.81 Dependence on supplemental oxygen; W22.8XXA Striking against or struck by other objects, initial encounter; Y93.89 Activity, other specified; Y92.89 Other specified places as the place of occurrence of the external cause; Y99.8 Other external cause status

== ENCOUNTER 2018-12-28 15:51 | Inpatient (IN) | payer OTHER ==
[~2018-12-28] VITALS: Ht 180.3 cm; Wt 138.3 kg
--- NOTE | ~2018-12-28 | EKG ---
[place], [place] ELECTROCARDIOGRAM REPORT NAME: ROBBIE DUQUE UNIT #: [id number] ROOM: 404 DOCTOR: YIN DRAFT REPORT BIRTHDATE: [birth year] [facility] Test Date: 2018-12-28 Test Time: 18:36:26 Pat Name: ROBBIE DUQUE Department: Room: 404 Gender: M Sales Development Representative: EKG.AR : 1950 Requested By: CIERRA MCNALLY Order Number: [id number] Reading MD: Natalie Brewer MD Measurements Intervals [place] Rate: 59 P: 44 OH: 234 QRS: 18 QRSD: 98 T: 109 QT: 440 QTc: 436 Interpretive Statements Sinus rhythm Prolonged OH interval Nonspecific T abnormalities, lateral leads Low voltage precordial leads. Electronically Signed On 12-29-2018 15:05:27 PDT by Natalie Brewer MD CM:EKGRPT:ELECTROCARDIOGRAM REPORT [id number] CIERRA BELLA DRAFT REPORT CIERRA MCNALLY DO
--- NOTE | ~2018-12-28 | EKG ---
[place], [place] ELECTROCARDIOGRAM REPORT NAME: ROBBIE DUQUE UNIT #: [id number] ROOM: 404 DOCTOR: YIN DRAFT REPORT BIRTHDATE: [birth year] [facility] Test Date: 2018-12-28 Test Time: 15:53:10 Pat Name: ROBBIE DUQUE Department: ER Room: 404 Gender: M Ekg Monitor Tech: Laith Flowers : 1950 Requested By: CIERRA MCNALLY Order Number: [id number] Reading MD: Natalie Brewer MD Measurements Intervals [place] Rate: 67 P: 8 UT: 235 QRS: 22 QRSD: 97 T: 121 QT: 471 QTc: 498 Interpretive Statements Sinus rhythm Prolonged UT interval Low voltage, precordial leads Nonspecific T abnormalities, lateral leads Borderline prolonged QT interval Baseline wander in lead(s) V4 Electronically Signed On 12-29-2018 15:03:26 PDT by Natalie Brewer MD CM:EKGRPT:ELECTROCARDIOGRAM REPORT [id number] CIERRA BELLA DRAFT REPORT CIERRA MCNALLY DO
--- NOTE | ~2018-12-28 | EKG ---
[place], [place] ELECTROCARDIOGRAM REPORT NAME: ROBBIE DUQUE UNIT #: [id number] ROOM: 404 DOCTOR: YIN DRAFT REPORT BIRTHDATE: [birth year] [facility] Test Date: 2018-12-28 Test Time: 21:59:25 Pat Name: ROBBIE DUQUE Department: Room: 404 Gender: M Roller Inspector And Mender: EKG.MS : 1950 Requested By: CIERRA MCNALLY Order Number: [id number] Reading MD: Natalie Brewer MD Measurements Intervals [place] Rate: 60 P: 0 WV: 232 QRS: 2 QRSD: 85 T: 114 QT: 659 QTc: 659 Interpretive Statements Sinus rhythm Prolonged [place]V interval Consider right atrial enlargement Low voltage, precordial leads Abnrm T, probable ischemia, anterolateral lds Prolonged QT interval Baseline wander in lead(s) V6 Electronically Signed On 12-29-2018 15:07:23 PDT by Natalie Brewer MD CM:EKGRPT:ELECTROCARDIOGRAM REPORT [id number] CIERRA BELLA DRAFT REPORT CIERRA MCNALLY DO
[2018-12-28 15:56] VITALS: BP 134/68
[2018-12-28 16:22] VITALS: BP 134/68
[2018-12-28 16:25] LABS: BASO # 0.1 10*3/uL (0.0-0.1); BASO % 0.7 % (0.0-1.0); EOS # 0.4 10*3/uL (0.0-0.4); EOS % 5.2 % (1.0-4.0); HEMATOCRIT 37.5 % (42.0-52.0); HEMOGLOBIN 12.2 g/dl (14.0-18.0); LYMPH # 1.7 10*3/uL (1.3-4.4); LYMPH % 21.7 % (27.0-41.0); MEAN CELL VOLUME 85.6 fl (80.0-94.0); MEAN CORPUSCULAR HGB 27.9 pg (27.0-31.0); MEAN CORPUSCULAR HGB CONC 32.5 g/dl (33.0-37.0); MEAN PLATELET VOLUME 12.1 fl (9.6-12.3); MONO # 0.5 10*3/uL (0.1-1.0); MONO % 6.7 % (3.0-9.0); NEUT % 64.7 % (47.0-73.0); PLATELET COUNT AUTOMATED 164 10*3/uL (130-400); RED BLOOD COUNT 4.38 10*6/uL (4.50-5.90); RED CELL DISTRI WIDTH 13.6 % (0-14.5); WHITE BLOOD COUNT 7.7 10*3/uL (4.8-10.8)
[2018-12-28 16:37] LABS: ACT PARTIAL THROMBO TIME 24.6 SECONDS (20.0-32.1); INTERNATIONAL NORM RATIO 0.9 (2.0-3.5)
[2018-12-28 17:00] VITALS: BP 137/65
--- NOTE | 2018-12-28 17:04 | NUR ---
PT W/O ACUTE DISTRESS NOTED RESTING IN EXAM BED W/SAFETY PRECAUTIONS INTACT, FAMILY @ BEDSIDE AND CALL LIGHT WITHIN REACH.
[2018-12-28 17:06] LABS: ALKALINE PHOSPHATASE 110 U/L (45-117); BUN 13 mg/dl (7-24); CHLORIDE 101 mmol/L (98-107); CREATININE 1.07 mg/dL (0.70-1.30); POTASSIUM 4.3 mmol/L (3.5-5.1); SGOT/AST 21 IU/L (3-35); SGPT/ALT 38 U/L (12-78); SODIUM 138 mmol/L (136-145); TOTAL PROTEIN 6.2 gm/dL (6.4-8.2)
[2018-12-28 17:08] LABS: TROPONIN I 0.109 ng/ml (<0.045)
--- NOTE | 2018-12-28 17:15 | NUR ---
MADE AWARE OF + TROP OF 0.109. JORGE LUIS PRUITT RN.
[2018-12-28 18:00] VITALS: BP 128/71
[2018-12-28 18:24] VITALS: BP 137/58
--- NOTE | 2018-12-28 18:38 | NUR ---
CCA 68, admitted to , under the services of JESUS Mota DO with a diagnosis of NSTEMI. Chief complaint is C/O JOSHI AND HTN. Patient arrived via wheel chair from ER. Monitor applied. Initial assessment completed. Vital signs taken and recorded. JESUS MOTA DO notified of admission to the unit. Orders received. See assessment for past medical history, medications and allergies. Patient and/or family oriented to unit. [address] visitation policy reviewed. Clothing/patient valuable form completed. DRE DUNN.
--- NOTE | 2018-12-28 19:12 | NUR ---
'S ANSWERING SERVICE NOTIFIED OF CONSULT.
--- NOTE | 2018-12-28 19:16 | NUR ---
DR. OLIVO NOTIFIED PT REFUSING BLOOD GASSES TO BE DRAWN AT THIS TIME
--- NOTE | 2018-12-28 19:19 | NUR ---
CRITICAL TROPONIN RESULT OF 0.[address] OLIVO. RESULT IS UP FROM LAST TROPONIN OF 0.109. NO NEW ORDERS GIVEN AT THIS TIME.
--- NOTE | 2018-12-28 19:50 | NUR ---
PT TAKEN OFF THE FLOOR TO CT AT THIS TIME.
[2018-12-28 20:00] VITALS: BP 140/53
[2018-12-28] MEDS ORDERED: PLAVIX75 M1 PO (20:35)
[2018-12-28] MEDS ORDERED: PEPCID20 MG PO (20:36)
[2018-12-28] MEDS ORDERED: SENNA8.6 MG PO (20:40)
[2018-12-28] MEDS ORDERED: NATURE'S BLEND100 M2 PO (20:41)
[2018-12-28] MEDS ORDERED: LYRICA150 M1 PO (20:41)
--- NOTE | 2018-12-28 21:00 | NUR ---
DR. OLIVO NOTIFIED MED REC UP TO DATE
[2018-12-28 21:49] LABS: BILIRUBIN NEGATIVE (NEGATIVE); BLOOD NEGATIVE (NEGATIVE); CLARITY CLEAR (CLEAR); COLOR YELLOW (YELLOW); GLUCOSE 3+ (NEGATIVE); KETONE NEGATIVE (NEGATIVE); LEUKO ESTERASE NEGATIVE (NEGATIVE); NITRITE NEGATIVE (NEGATIVE); PH 5.5 (5.0-9.0); SPECIFIC GRAVITY 1.025 (1.005-1.030); UROBILINOGEN 0.2 E.U./dl (0.2-1.0)
[2018-12-28 21:57] LABS: BACTERIA TRACE; EPITHELIAL CELLS 0-2; MUCOUS 1+
--- NOTE | 2018-12-28 22:42 | NUR ---
DR. OLIVO NOTIFIED OF CRITICAL TROPONIN RESULT OF 0.135 WHICH IS DOWN FROM 0.146. NO NEW ORDERS GIVEN.
[2018-12-29] VITALS: BP 152/68
--- NOTE | 2018-12-29 00:45 | NUR ---
HEPARIN GTT INCREASED BY 2 UNITS/KG WARRANTED BY PROTOCOL. VERIFIED BY DUSTY ERVIN. GTT IS NOW GOING AT 14 UNITS/KG (19.3cc/hr). WILL CONTINUE TO MONITOR PT.
[2018-12-29 06:43] LABS: BASO % 0.6 % (0.0-1.0); EOS # 0.4 10*3/uL (0.0-0.4); EOS % 5.8 % (1.0-4.0); LYMPH # 1.8 10*3/uL (1.3-4.4); LYMPH % 25.4 % (27.0-41.0); MEAN CELL VOLUME 87.4 fl (80.0-94.0); MEAN CORPUSCULAR HGB 27.6 pg (27.0-31.0); MEAN CORPUSCULAR HGB CONC 31.6 g/dl (33.0-37.0); MEAN PLATELET VOLUME 12.1 fl (9.6-12.3); MONO # 0.4 10*3/uL (0.1-1.0); MONO % 5.8 % (3.0-9.0); NEUT # 4.3 10*3/uL (2.3-7.9); NEUT % 60.8 % (47.0-73.0); PLATELET COUNT AUTOMATED 130 10*3/uL (130-400); RED BLOOD COUNT 4.35 10*6/uL (4.50-5.90); RED CELL DISTRI WIDTH 13.6 % (0-14.5)
[2018-12-29 07:17] LABS: ALKALINE PHOSPHATASE 114 U/L (45-117); BUN 12 mg/dl (7-24); CHLORIDE 103 mmol/L (98-107); CHOLESTEROL 128 mg/dL (<200); FREE T4 0.99 ng/dl (0.76-1.46); HDL CHOLESTEROL 26 mg/dl (40-60); LDL CHOLESTEROL 34 mg/dL (9-159); PHOSPHOROUS 3.7 mg/dL (2.5-4.9); POTASSIUM 4.4 mmol/L (3.5-5.1); SGOT/AST 30 IU/L (3-35); SGPT/ALT 45 U/L (12-78); SODIUM 142 mmol/L (136-145); TOTAL PROTEIN 6.1 gm/dL (6.4-8.2); TRIGLYCERIDES 340 mg/dl (<150); VLDL CHOLESTEROL 68 mg/dL (6-40)
--- NOTE | 2018-12-29 07:56 | NUR ---
PTT THIS AM 51.9. NO CHANGE IN RATE OF HEPARIN DRIP, NEXT PTT TO BE DRAWN AT 0530 ON 12/30/18 PER POLICY.
[2018-12-29 08:35] VITALS: BP 140/72
--- NOTE | 2018-12-29 10:23 | NUR ---
Occupational Therapy evaluation offered this am with present. Patient was lethargic and reported that he did not want any therapy today. OTR will recheck at a later date. Cheryl White OTR/
--- NOTE | 2018-12-29 10:30 | NUR ---
PHYSICAL THERAPY PAtient requests no PT this date. Thank you for this referral. Jen Barron,PT
[2018-12-29 11:34] LABS: ABG BASE EXCESS 4.3 mmol/L (-2.0-2.0); ABG HCO3 31.6 mmol/l (22-26); ABG O2 SATURATION 93.3 % (95-97); ARTERIAL BLOOD GAS PCO2 60.6 mmHg (35-45); ARTERIAL BLOOD GAS PH 7.334 (7.35-7.45); ARTERIAL BLOOD GAS PO2 62.5 mmHg (80-90)
[2018-12-29 12:00] VITALS: BP 168/69
--- NOTE | 2018-12-29 14:25 | NUR ---
Tailor Helper in to talk to patient. Patient states lives at HOME with . There are NO steps in the home. Physician: [facility]acy: [facility] Home health services: NONE AT THIS TIME Patient's level of ADLs: MAX ASSIST Patient has working utilities: YES DME: OXYGEN, PORT TANKS, WALKER, CANE, WHEELCHAIR, Follow-up physician's appointment after d/c: WILL BE MADE BY HOSPITALIST NURSE DIRECTOR ON DISCHARGE Does patient want to access PORTAL?: NO Discharge plan PT LIVES AT HOME WITH HIS . PER PT IS TOTAL CARE AND IN A WHEELCHAIR MOST OF THE DAY. [facility] HIM BUT COULD NOT FIND A COMAPANY THAT WOULD COME TO THEIR HOUSE. STATES SHE WOULD LIKE TO HAVE HOME HEALTH AFTER DISCHARGE. NO OTHER NEEDS AT THIS TIME. WILL CONTINUE TO FOLLOW. WILL HAVE A RIDE HOME PER .. KOMAL PUCKETT
[2018-12-29 16:00] VITALS: BP 150/75
[2018-12-29 20:00] VITALS: BP 137/99
[2018-12-30] VITALS: BP 169/68
[2018-12-30 08:00] VITALS: BP 146/56; BP 160/70
--- NOTE | 2018-12-30 11:21 | NUR ---
patient requesting [facility] upon discharge. Received order, faxed referral.
[2018-12-30 12:00] VITALS: BP 123/68
[2018-12-30] MEDS ORDERED: ATIVAN1 MG PO (13:25)
[2018-12-30] MEDS ORDERED: METOPROLOL SUCC25 M2 PO (13:25)
--- NOTE | 2018-12-30 13:29 | NUR ---
FACE TO FACE FORM FAXED TO [facility].
--- NOTE | 2018-12-30 13:34 | NUR ---
Occupational Therapy offered. and patient declined stating that patient is being discharged to day. Cheryl White OTR/l
--- NOTE | 2018-12-30 14:02 | NUR ---
PHYSICAL THERAPY Approached patient for d/c, patient and reports he is discharged. Thank you for this referral. Jen Barron,PT
--- NOTE | 2018-12-30 14:25 | NUR ---
Discharge instructions reviewed with patient/family. Patient receptive and verbalizes understanding. Follow-up care arranged. Written instructions given to patient/family. EDWIN VIEIRA
== END 2018-12-30 14:30 | disposition home or self-care (01) | DRG 280 ==
LOC: ED 15:51 → 4E 17:54 → EDHOLD 17:54 → 4E 18:15
PROVIDERS: Emergency Medicine; Internal Medicine; ADMIT Internal Medicine
DX: I21.4 Non-ST elevation (NSTEMI) myocardial infarction (principal); G93.41 Metabolic encephalopathy; E44.0 Moderate protein-calorie malnutrition; J96.11 Chronic respiratory failure with hypoxia; Z68.41 Body mass index [BMI] 40.0-44.9, adult; R00.1 Bradycardia, unspecified; E11.65 Type 2 diabetes mellitus with hyperglycemia; E66.01 Morbid (severe) obesity due to excess calories; E78.5 Hyperlipidemia, unspecified; G47.33 Obstructive sleep apnea (adult) (pediatric); F32.9 Major depressive disorder, single episode, unspecified; I25.10 Atherosclerotic heart disease of native coronary artery without angina pectoris; E78.1 Pure hyperglyceridemia; I11.0 Hypertensive heart disease with heart failure; I50.9 Heart failure, unspecified; K21.9 Gastro-esophageal reflux disease without esophagitis; E11.40 Type 2 diabetes mellitus with diabetic neuropathy, unspecified; E55.9 Vitamin D deficiency, unspecified; J44.9 Chronic obstructive pulmonary disease, unspecified; Z99.81 Dependence on supplemental oxygen; Z88.0 Allergy status to penicillin; Z88.8 Allergy status to other drugs, medicaments and biological substances; I25.2 Old myocardial infarction; Z90.49 Acquired absence of other specified parts of digestive tract; Z82.5 Family history of asthma and other chronic lower respiratory diseases; Z81.8 Family history of other mental and behavioral disorders; Z83.3 Family history of diabetes mellitus; Z82.49 Family history of ischemic heart disease and other diseases of the circulatory system; Z79.82 Long term (current) use of aspirin; Z79.899 Other long term (current) drug therapy; Z79.02 Long term (current) use of antithrombotics/antiplatelets; Z79.4 Long term (current) use of insulin

== ENCOUNTER → 2019-02-23 | Outpatient (CLI) | payer OTHER ==
[~2019-02-23] MED LIST changes: +LYRICA150 M1 PO; +METOPROLOL SUCC25 M2 PO; +NATURE'S BLEND100 M2 PO; +PEPCID20 MG PO; +PLAVIX75 M1 PO; +SENNA8.6 MG PO
[2019-02-23 14:28] LABS: BASO % 0.5 % (0.0-1.0); EOS # 0.3 10*3/uL (0.0-0.4); EOS % 3.9 % (1.0-4.0); HEMATOCRIT 44.4 % (42.0-52.0); HEMOGLOBIN 13.8 g/dl (14.0-18.0); LYMPH # 1.6 10*3/uL (1.3-4.4); LYMPH % 19.3 % (27.0-41.0); MEAN CELL VOLUME 86.9 fl (80.0-94.0); MEAN CORPUSCULAR HGB CONC 31.1 g/dl (33.0-37.0); MEAN PLATELET VOLUME 12.1 fl (9.6-12.3); MONO # 0.5 10*3/uL (0.1-1.0); MONO % 6.2 % (3.0-9.0); NEUT # 5.7 10*3/uL (2.3-7.9); NEUT % 69.6 % (47.0-73.0); PLATELET COUNT AUTOMATED 140 10*3/uL (130-400); RED BLOOD COUNT 5.11 10*6/uL (4.50-5.90); RED CELL DISTRI WIDTH 14.2 % (0-14.5); WHITE BLOOD COUNT 8.2 10*3/uL (4.8-10.8)
[2019-02-23 14:59] LABS: ALBUMIN 3.4 gm/dl (3.1-4.5); ALKALINE PHOSPHATASE 115 U/L (45-117); BUN 13 mg/dl (7-24); CHLORIDE 106 mmol/L (98-107); CREATININE 0.85 mg/dL (0.70-1.30); POTASSIUM 4.4 mmol/L (3.5-5.1); SGOT/AST 18 IU/L (3-35); SODIUM 143 mmol/L (136-145)
[2019-02-23 15:04] LABS: SGPT/ALT 30 U/L (12-78)
== END | disposition home or self-care (01) ==
LOC: LAB 13:26
PROVIDERS: Internal Medicine
DX: Z12.5 Encounter for screening for malignant neoplasm of prostate (principal); I25.10 Atherosclerotic heart disease of native coronary artery without angina pectoris; I10 Essential (primary) hypertension; D40.0 Neoplasm of uncertain behavior of prostate

== ENCOUNTER 2019-03-18 14:05 | Emergency (ER) | payer OTHER ==
[~2019-03-18] VITALS: Ht 180.3 cm; Wt 134.7 kg
[2019-03-18 14:06] VITALS: BP 103/35
[2019-03-18] MEDS ORDERED: KEFLEX500 M1 PO (15:31)
== END 2019-03-18 15:43 | disposition home or self-care (01) ==
LOC: ED 14:05
DX: S20.211A Contusion of right front wall of thorax, initial encounter (principal); S80.811A Abrasion, right lower leg, initial encounter; I25.10 Atherosclerotic heart disease of native coronary artery without angina pectoris; J44.9 Chronic obstructive pulmonary disease, unspecified; E11.9 Type 2 diabetes mellitus without complications; K21.9 Gastro-esophageal reflux disease without esophagitis; I10 Essential (primary) hypertension; E66.01 Morbid (severe) obesity due to excess calories; E11.40 Type 2 diabetes mellitus with diabetic neuropathy, unspecified; Z88.0 Allergy status to penicillin; Z88.8 Allergy status to other drugs, medicaments and biological substances; Z79.899 Other long term (current) drug therapy; Z79.82 Long term (current) use of aspirin; Z68.43 Body mass index [BMI] 50.0-59.9, adult; Z79.4 Long term (current) use of insulin; W19.XXXA Unspecified fall, initial encounter; Y93.89 Activity, other specified; Y92.89 Other specified places as the place of occurrence of the external cause; Y99.8 Other external cause status

== ENCOUNTER → 2019-04-24 | Outpatient (CLI) | payer OTHER ==
[~2019-04-24] MED LIST changes: +KEFLEX500 M1 PO
[2019-04-24 14:12] LABS: BILIRUBIN NEGATIVE (NEGATIVE); BLOOD NEGATIVE (NEGATIVE); CLARITY CLEAR (CLEAR); COLOR YELLOW (YELLOW); GLUCOSE 3+ (NEGATIVE); KETONE NEGATIVE (NEGATIVE); LEUKO ESTERASE NEGATIVE (NEGATIVE); NITRITE NEGATIVE (NEGATIVE)
[2019-04-24 14:20] LABS: BACTERIA TRACE; EPITHELIAL CELLS 0-2; RBC 0-2 rbc/hpf (0-2); WBC 0-2 wbc/hpf (0-5)
[2019-04-24 14:30] LABS: LDH 170 U/L (87-241)
[2019-04-24 14:31] LABS: ALBUMIN 3.2 gm/dl (3.1-4.5); ALKALINE PHOSPHATASE 119 U/L (45-117); BUN 17 mg/dl (7-24); CHLORIDE 103 mmol/L (98-107); CREATININE 0.99 mg/dL (0.70-1.30); POTASSIUM 4.1 mmol/L (3.5-5.1); SGOT/AST 14 IU/L (3-35); SGPT/ALT 33 U/L (12-78); SODIUM 137 mmol/L (136-145); TOTAL PROTEIN 6.9 gm/dL (6.4-8.2)
[2019-04-24 14:33] LABS: BETA-HCG, TUMOR MARKER < 1.0 mIU/mL (<1)
[2019-04-24 14:38] LABS: VITAMIN D, 25-HYDROXY 38.9 ng/mL (30-100)
[2019-04-25 05:09] LABS: AFP TUMOR MARKER 002253 1.4 ng/mL (0.0-8.3)
[2019-04-25 11:06] LABS: CREATININE,URINE 64.4 mg/dL (Not Estab.); MICRO ALBUMIN/CRE RATIO <4.7 (0.0-30.0)
[2019-04-26 17:21] LABS: TESTOSTERONE FREE, (DIRECT) 2.6 pg/mL (6.6-18.1)
== END | disposition home or self-care (01) ==
LOC: CT 04-01 13:00 → LAB 12:23 → CT 13:00
PROVIDERS: Internal Medicine; Internal Medicine Endocrinology, Diabetes & Metabolism; Nurse Practitioner Family
DX: E11.65 Type 2 diabetes mellitus with hyperglycemia (principal); G62.9 Polyneuropathy, unspecified; E55.9 Vitamin D deficiency, unspecified; I25.10 Atherosclerotic heart disease of native coronary artery without angina pectoris; J18.9 Pneumonia, unspecified organism; E83.42 Hypomagnesemia; N39.0 Urinary tract infection, site not specified; R10.9 Unspecified abdominal pain; N40.0 Benign prostatic hyperplasia without lower urinary tract symptoms; N26.1 Atrophy of kidney (terminal); R35.0 Frequency of micturition

== ENCOUNTER → 2019-05-15 | Outpatient (CLI) | payer OTHER | END | disposition home or self-care (01) | LOC: RESCLI 01:36 | DX: I25.10 Atherosclerotic heart disease of native coronary artery without angina pectoris (principal); G62.9 Polyneuropathy, unspecified; F41.9 Anxiety disorder, unspecified; E11.65 Type 2 diabetes mellitus with hyperglycemia; F43.10 Post-traumatic stress disorder, unspecified; E11.42 Type 2 diabetes mellitus with diabetic polyneuropathy; E11.8 Type 2 diabetes mellitus with unspecified complications; E78.2 Mixed hyperlipidemia; J41.1 Mucopurulent chronic bronchitis; J96.11 Chronic respiratory failure with hypoxia; J96.12 Chronic respiratory failure with hypercapnia; G47.33 Obstructive sleep apnea (adult) (pediatric); I11.0 Hypertensive heart disease with heart failure; I50.32 Chronic diastolic (congestive) heart failure; N43.3 Hydrocele, unspecified; I25.2 Old myocardial infarction; I87.2 Venous insufficiency (chronic) (peripheral); Z86.73 Personal history of transient ischemic attack (TIA), and cerebral infarction without residual deficits; Z79.899 Other long term (current) drug therapy ==

== ENCOUNTER → 2019-06-17 | Outpatient (CLI) | payer OTHER | END | disposition home or self-care (01) | LOC: RESCLI 00:48 | DX: E11.42 Type 2 diabetes mellitus with diabetic polyneuropathy (principal); I11.0 Hypertensive heart disease with heart failure; E78.2 Mixed hyperlipidemia; I25.10 Atherosclerotic heart disease of native coronary artery without angina pectoris; I50.32 Chronic diastolic (congestive) heart failure; F43.10 Post-traumatic stress disorder, unspecified; J96.11 Chronic respiratory failure with hypoxia; J96.12 Chronic respiratory failure with hypercapnia; J41.1 Mucopurulent chronic bronchitis; E66.2 Morbid (severe) obesity with alveolar hypoventilation; E11.65 Type 2 diabetes mellitus with hyperglycemia; G62.9 Polyneuropathy, unspecified; I25.2 Old myocardial infarction; K21.9 Gastro-esophageal reflux disease without esophagitis; F41.9 Anxiety disorder, unspecified; N43.3 Hydrocele, unspecified; I87.2 Venous insufficiency (chronic) (peripheral); Z79.899 Other long term (current) drug therapy; Z86.73 Personal history of transient ischemic attack (TIA), and cerebral infarction without residual deficits; Z79.4 Long term (current) use of insulin; Z88.0 Allergy status to penicillin; Z88.8 Allergy status to other drugs, medicaments and biological substances ==

== ENCOUNTER → 2019-06-17 | Outpatient (CLI) | payer OTHER ==
[2019-06-17 15:16] LABS: HEMATOCRIT 44.9 % (42.0-52.0); MEAN CELL VOLUME 83.9 fl (80.0-94.0); MEAN CORPUSCULAR HGB 26.2 pg (27.0-31.0); MEAN CORPUSCULAR HGB CONC 31.2 g/dl (33.0-37.0); MEAN PLATELET VOLUME 12.4 fl (9.6-12.3); PLATELET COUNT AUTOMATED 160 10*3/uL (130-400); RED BLOOD COUNT 5.35 10*6/uL (4.50-5.90); RED CELL DISTRI WIDTH 14.7 % (0-14.5); WHITE BLOOD COUNT 8.4 10*3/uL (4.8-10.8)
[2019-06-17 15:38] LABS: BASOPHILS 2 % (0-1); TOTAL CELLS COUNTED 100 #CELLS
[2019-06-17 15:39] LABS: PLATELET SUFFICIENCY NORMAL (NORMAL)
[2019-06-17 15:46] LABS: BUN 15 mg/dl (7-24); CHLORIDE 99 mmol/L (98-107); CHOLESTEROL 123 mg/dL (<200); CREATININE 1.19 mg/dL (0.70-1.30); SGOT/AST 18 IU/L (3-35); SGPT/ALT 30 U/L (12-78); SODIUM 134 mmol/L (136-145)
[2019-06-17 15:56] LABS: BILIRUBIN, DIRECT 0.2 mg/dL (0.0-0.2); HDL CHOLESTEROL 26 mg/dl (40-60); LDL CHOLESTEROL 46 mg/dL (9-159); TRIGLYCERIDES 255 mg/dl (<150); VLDL CHOLESTEROL 51 mg/dL (6-40)
[2019-06-18 04:09] LABS: ALKALINE PHOSPHATASE, SERUM 121 IU/L (39-117)
== END | disposition home or self-care (01) ==
LOC: LAB 14:49
PROVIDERS: Internal Medicine Nephrology
DX: Z12.5 Encounter for screening for malignant neoplasm of prostate (principal); E55.9 Vitamin D deficiency, unspecified; E11.8 Type 2 diabetes mellitus with unspecified complications; I50.32 Chronic diastolic (congestive) heart failure; Z79.899 Other long term (current) drug therapy

== ENCOUNTER 2019-07-30 13:53 | Emergency (ER) | payer OTHER ==
[~2019-07-30] VITALS: Ht 177.8 cm; Wt 142.9 kg
[2019-07-30 15:00] LABS: BASO # 0.1 10*3/uL (0.0-0.1); BASO % 0.5 % (0.0-1.0); EOS # 0.2 10*3/uL (0.0-0.4); EOS % 1.4 % (1.0-4.0); HEMATOCRIT 46.2 % (42.0-52.0); HEMOGLOBIN 14.6 g/dl (14.0-18.0); LYMPH # 1.5 10*3/uL (1.3-4.4); LYMPH % 13.5 % (27.0-41.0); MEAN CELL VOLUME 82.9 fl (80.0-94.0); MEAN CORPUSCULAR HGB 26.2 pg (27.0-31.0); MEAN CORPUSCULAR HGB CONC 31.6 g/dl (33.0-37.0); MEAN PLATELET VOLUME 11.5 fl (9.6-12.3); MONO # 0.4 10*3/uL (0.1-1.0); NEUT # 8.7 10*3/uL (2.3-7.9); NEUT % 80.2 % (47.0-73.0); PLATELET COUNT AUTOMATED 177 10*3/uL (130-400); RED BLOOD COUNT 5.57 10*6/uL (4.50-5.90); RED CELL DISTRI WIDTH 14.1 % (0-14.5); WHITE BLOOD COUNT 10.8 10*3/uL (4.8-10.8)
[2019-07-30 15:15] LABS: ACT PARTIAL THROMBO TIME 28.4 SECONDS (20.0-32.1); INTERNATIONAL NORM RATIO 0.9 (2.0-3.5)
[2019-07-30 15:16] LABS: ALBUMIN 3.6 gm/dl (3.1-4.5); ALKALINE PHOSPHATASE 124 U/L (45-117); BUN 14 mg/dl (7-24); CHLORIDE 102 mmol/L (98-107); CREATININE 0.95 mg/dL (0.70-1.30); LIPASE 70 U/L (73-393); POTASSIUM 4.1 mmol/L (3.5-5.1); SGOT/AST 17 IU/L (3-35); SGPT/ALT 27 U/L (12-78); SODIUM 139 mmol/L (136-145); TOTAL PROTEIN 7.5 gm/dL (6.4-8.2)
[2019-07-30 15:19] LABS: TROPONIN I < 0.015 ng/ml (<0.045)
[2019-07-30 15:50] VITALS: BP 142/79
[2019-07-30] MEDS ORDERED: PREDNISONE50 MG PO (16:15)
== END 2019-07-30 16:31 | disposition left against medical advice (07) ==
LOC: ED 13:53
PROVIDERS: Emergency Medicine
DX: J44.1 Chronic obstructive pulmonary disease with (acute) exacerbation (principal); R42 Dizziness and giddiness; I25.10 Atherosclerotic heart disease of native coronary artery without angina pectoris; E11.43 Type 2 diabetes mellitus with diabetic autonomic (poly)neuropathy; I10 Essential (primary) hypertension; K21.9 Gastro-esophageal reflux disease without esophagitis; E66.1 Drug-induced obesity; E78.5 Hyperlipidemia, unspecified; Z68.43 Body mass index [BMI] 50.0-59.9, adult; Z79.899 Other long term (current) drug therapy; Z79.82 Long term (current) use of aspirin; Z79.4 Long term (current) use of insulin; Z88.0 Allergy status to penicillin; Z88.8 Allergy status to other drugs, medicaments and biological substances; Z99.81 Dependence on supplemental oxygen

== ENCOUNTER → 2019-08-10 | Outpatient (CLI) | payer OTHER ==
[~2019-08-10] MED LIST changes: +PREDNISONE50 MG PO
== END | disposition home or self-care (01) ==
LOC: LAB 15:11
DX: E11.9 Type 2 diabetes mellitus without complications (principal)

== ENCOUNTER 2020-04-28 18:02 | Emergency (ER) | payer OTHER ==
[2020-04-28 20:47] LABS: BASO % 0.4 % (0.0-1.0); EOS # 0.3 10*3/uL (0.0-0.4); EOS % 2.8 % (1.0-4.0); HEMATOCRIT 43.4 % (42.0-52.0); LYMPH # 1.6 10*3/uL (1.3-4.4); MEAN CELL VOLUME 86.1 fl (80.0-94.0); MEAN CORPUSCULAR HGB 26.4 pg (27.0-31.0); MEAN CORPUSCULAR HGB CONC 30.6 g/dl (33.0-37.0); MEAN PLATELET VOLUME 12.4 fl (9.6-12.3); MONO # 0.6 10*3/uL (0.1-1.0); MONO % 6.4 % (3.0-9.0); NEUT # 6.5 10*3/uL (2.3-7.9); NEUT % 72.2 % (47.0-73.0); PLATELET COUNT AUTOMATED 142 10*3/uL (130-400); RED BLOOD COUNT 5.04 10*6/uL (4.50-5.90); RED CELL DISTRI WIDTH 14.2 % (0-14.5)
[2020-04-28 21:04] LABS: ALKALINE PHOSPHATASE 110 U/L (45-117); BUN 15 mg/dl (7-24); CHLORIDE 99 mmol/L (98-107); CREATININE 0.88 mg/dL (0.70-1.30); LIPASE 64 U/L (73-393); POTASSIUM 4.7 mmol/L (3.5-5.1); SGOT/AST 12 IU/L (3-35); SGPT/ALT 32 U/L (12-78); SODIUM 139 mmol/L (136-145); TOTAL PROTEIN 6.6 gm/dL (6.4-8.2)
[2020-04-28 21:43] LABS: BILIRUBIN Negative (Negative); BLOOD Negative (Negative); CLARITY Clear (Clear); COLOR Dark Yellow (Yellow); GLUCOSE Negative (Negative); KETONE Trace (Negative); LEUKO ESTERASE Trace (Negative); NITRITE Negative (Negative); SPECIFIC GRAVITY 1.025 (1.001-1.030)
[2020-04-28 22:04] LABS: BACTERIA TRACE; EPITHELIAL CELLS 0-2; MUCOUS 3+
[2020-04-28] MEDS ORDERED: SEPTDS PO (22:22)
[2020-04-28 22:39] VITALS: BP 138/80
== END 2020-04-28 22:40 | disposition home or self-care (01) ==
LOC: ED 18:02
PROVIDERS: Physician Assistant
DX: N39.0 Urinary tract infection, site not specified (principal); I10 Essential (primary) hypertension; F41.9 Anxiety disorder, unspecified; E78.5 Hyperlipidemia, unspecified; Z88.0 Allergy status to penicillin; Z88.8 Allergy status to other drugs, medicaments and biological substances; Z79.899 Other long term (current) drug therapy; Z79.4 Long term (current) use of insulin; Z79.82 Long term (current) use of aspirin

== ENCOUNTER 2020-06-15 10:30 | Emergency (ER) | payer OTHER ==
[~2020-06-15] VITALS: Ht 177.8 cm; Wt 143.3 kg
[~2020-06-15 10:30] MED LIST changes: +SEPTDS PO
[2020-06-15 10:57] VITALS: BP 106/48
[2020-06-15 11:09] LABS: BASO # 0.1 10*3/uL (0.0-0.1); BASO % 0.5 % (0.0-1.0); EOS # 0.2 10*3/uL (0.0-0.4); EOS % 1.6 % (1.0-4.0); LYMPH # 2.6 10*3/uL (1.3-4.4); LYMPH % 26.1 % (27.0-41.0); MEAN CELL VOLUME 89.7 fl (80.0-94.0); MEAN CORPUSCULAR HGB 26.7 pg (27.0-31.0); MEAN CORPUSCULAR HGB CONC 29.8 g/dl (33.0-37.0); MEAN PLATELET VOLUME 12.4 fl (9.6-12.3); MONO # 0.8 10*3/uL (0.1-1.0); MONO % 8.2 % (3.0-9.0); NEUT # 6.2 10*3/uL (2.3-7.9); NEUT % 62.3 % (47.0-73.0); PLATELET COUNT AUTOMATED 143 10*3/uL (130-400); RED BLOOD COUNT 4.46 10*6/uL (4.50-5.90); RED CELL DISTRI WIDTH 14.6 % (0-14.5); WHITE BLOOD COUNT 9.9 10*3/uL (4.8-10.8)
[2020-06-15 11:18] LABS: ACT PARTIAL THROMBO TIME 26.8 SECONDS (20.0-32.1)
[2020-06-15 11:23] LABS: CREATININE 1.72 mg/dL (0.70-1.30); POTASSIUM 4.8 mmol/L (3.5-5.1); TOTAL PROTEIN 6.4 gm/dL (6.4-8.2)
[2020-06-15 11:28] LABS: TROPONIN I 2.44 ng/ml (<0.045)
[2020-06-15 11:38] LABS: ABG BASE EXCESS 7.1 mmol/L (-2.0-2.0); ARTERIAL BLOOD GAS PH 7.232 (7.35-7.45)
[2020-06-15 14:04] VITALS: BP 122/58
[2020-06-15] MEDS ORDERED: AMARYL4 MG PO (18:53)
[2020-06-15] MEDS ORDERED: LANTUS SOL100 UNIT/1 SC (18:53)
[2020-06-15] MEDS ORDERED: LATU60TA PO (18:53)
[2020-06-15] MEDS ORDERED: CRESTOR20 M1 PO (18:54)
[2020-06-15] MEDS ORDERED: MULTIVITAMIN1 EACH PO (18:55)
[2020-06-15] MEDS ORDERED: ISOSORBIDE30 MG PO (18:56)
[2020-06-15] MEDS ORDERED: LOSARTAN POTASS25 M1 PO (18:57)
[2020-06-15] MEDS ORDERED: METOPROLOL SUCC25 M2 PO (18:57)
[2020-06-15] MEDS ORDERED: PROZAC20 MG PO ×2 (18:58→18:59)
[2020-06-15] MEDS ORDERED: B12 ACTIVE1000 MCG PO (18:59)
[2020-06-15] MEDS ORDERED: LYRICA150 M1 PO (19:01)
[2020-06-15] MEDS ORDERED: CINAMMON PO (19:01)
[2020-06-15] MEDS ORDERED: VITAMIN D PO ×3 (19:02→19:03)
== END 2020-06-15 18:05 | disposition admitted as inpatient to this hospital (09) ==
LOC: ED 10:30 → EDHOLD 15:12 → ED 18:05
PROVIDERS: Emergency Medicine
DX: I21.4 Non-ST elevation (NSTEMI) myocardial infarction (principal); J96.90 Respiratory failure, unspecified, unspecified whether with hypoxia or hypercapnia; I25.10 Atherosclerotic heart disease of native coronary artery without angina pectoris; J44.9 Chronic obstructive pulmonary disease, unspecified; E78.5 Hyperlipidemia, unspecified; E11.9 Type 2 diabetes mellitus without complications; K21.9 Gastro-esophageal reflux disease without esophagitis; F32.9 Major depressive disorder, single episode, unspecified; G47.33 Obstructive sleep apnea (adult) (pediatric); I11.0 Hypertensive heart disease with heart failure; I50.9 Heart failure, unspecified; Z88.0 Allergy status to penicillin; Z88.8 Allergy status to other drugs, medicaments and biological substances; Z79.4 Long term (current) use of insulin; Z79.899 Other long term (current) drug therapy

== ENCOUNTER 2020-06-15 16:19 | Inpatient (IN) | payer OTHER ==
[~2020-06-15] VITALS: Ht 152.4 cm; Wt 143.6 kg
[2020-06-15 18:30] VITALS: BP 107/48
--- NOTE | 2020-06-15 18:30 | NUR ---
Time: 1829 A 70 year old MALE admitted to under services of [facility]. DARIEN KINGSLEY
[2020-06-15] MEDS ORDERED: AMARYL4 MG PO (18:53)
[2020-06-15] MEDS ORDERED: LATU60TA PO (18:53)
[2020-06-15] MEDS ORDERED: LANTUS SOL100 UNIT/1 SC (18:53)
[2020-06-15] MEDS ORDERED: CRESTOR20 M1 PO (18:54)
[2020-06-15] MEDS ORDERED: MULTIVITAMIN1 EACH PO (18:55)
[2020-06-15] MEDS ORDERED: ISOSORBIDE30 MG PO (18:56)
[2020-06-15] MEDS ORDERED: METOPROLOL SUCC25 M2 PO (18:57)
[2020-06-15] MEDS ORDERED: LOSARTAN POTASS25 M1 PO (18:57)
[2020-06-15] MEDS ORDERED: PROZAC20 MG PO ×2 (18:58→18:59)
[2020-06-15] MEDS ORDERED: B12 ACTIVE1000 MCG PO (18:59)
[2020-06-15] MEDS ORDERED: LYRICA150 M1 PO (19:01)
[2020-06-15] MEDS ORDERED: CINAMMON PO (19:01)
[2020-06-15] MEDS ORDERED: VITAMIN D PO ×3 (19:02→19:03)
--- NOTE | 2020-06-15 22:15 | NUR ---
DR. VEGAS NOTIFIED OF CRITICAL TROPONIN OF 0.058.
--- NOTE | 2020-06-15 23:06 | NUR ---
PATIENT MEDICATED WITH ATIVAN FOR COMPLAINTS OF ANXIETY. WILL MONITOR FOR EFFECTIVENESS. CALL LIGHT IN REACH.
[2020-06-15 23:45] VITALS: BP 112/55
--- NOTE | 2020-06-16 01:24 | NUR ---
ATIVAN EFFECTIVE. PATIENT IN BED SLEEPING AT THIS TIME. NO SIGNS OR SYMPTOMS OF DISTRESS NOTED. AT BEDSIDE IN RECLINER. WILL CONTINUE TO MONTIOR. CALL LIGHT IN REACH.
--- NOTE | 2020-06-16 06:10 | NUR ---
PATIENT MEDICATED WITH ATIVAN FOR ANXIETY SYMPTOMS. WILL MONITOR FOR EFFECTIVENESS.
[2020-06-16 08:00] VITALS: BP 148/65
--- NOTE | 2020-06-16 08:00 | NUR ---
PATIENT SLEEPING IN BED. NO S/S OF DISTRESS OR SOB NOTED. 4L NASAL CANNULA INTACT. AT BEDSIDE. NO COMPLAINTS AT THIS TIME. BED IN LOWEST LOCKED POSITION AND CALL LIGHT WITHIN REACH. WILL CONTINUE TO MONITOR.
--- NOTE | 2020-06-16 08:54 | NUR ---
REQUESTS ATIVAN FOR HER AT THIS TIME. STATES HE IS BECOMING RESTLESS. PRN ATIVAN ADMINISTERED. WILL MONITOR FOR EFFECTIVENESS.
--- NOTE | 2020-06-16 09:30 | NUR ---
AT PATIENT'S BEDSIDE VOICES CONCERNS OF TAKING HER HOME. STATES SHE THINKS HE NEEDS SNF. STATES THAT HE REFUSES TO GO AND WANTS TO SIGN OUT AMA. DR. KAY NOTIFIED.
--- NOTE | 2020-06-16 10:00 | NUR ---
DR. VICTOR TO FLOOR TO SPEAK WITH REGARDING DISCHARGE PLANNING. NEW ORDER FOR REESE AT THIS TIME.
--- NOTE | 2020-06-16 11:42 | NUR ---
PT SITTING ON SIDE OF BED. STATES HE WANTS TO LEAVE. 2MG ATIVAN ADMINISTERED PER DR. VICTOR. WILL MONITOR FOR EFFECTIVENESS. PT PLACED BACK INTO BED. BED ALARM INTACT.
--- NOTE | 2020-06-16 12:00 | NUR ---
PT IS TAKING OFF NASAL CANNULA. PULSE OX 82%. DR. KAY NOTIFIED. OXYGEN MASK APPLIED AT THIS TIME. PULSE OX BACK INTO 90S. DR. KAY NOTIFIED THAT ATIVAN DOSE MAY HAVE BEEN TOO HIGH. NO NEW ORDERS.
--- NOTE | 2020-06-16 14:30 | NUR ---
PT WILL NOT LEAVE O2 ON. PULSE OX IN 80S ON ROOM AIR. DR. KAY NOTIFIED. NO NEW ORDERS.
[2020-06-16 16:00] VITALS: BP 170/80
--- NOTE | 2020-06-16 19:46 | NUR ---
ASSUMED CARE OF PATIENT. PATIENT IS AAOX3 WITH EASY AND REGULAR RESPERS ON 4L O2 VIA NC. ASSESSMENT IS COMPLETE WITH NO S/S OF DISTRESS NOTED AT THIS TIME. SMALL MUCOSY BOWEL MOVEMENT. PATIENT REQUESTING A "CHAIRBED". CALL PLACED TO OTOLARYNGOLOGIST, INSTURCTED TO CALL FLOOR SERVICE TO HAVE THEM LOOK FOR CHAIRBED IN STORAGE. CALL PLACED TO DR. VEGAS, SEE NEW ORDERS. BED IS LOW, LOCKED, ALARMED, AND CALL LIGHT IS WITHIN REACH. WILL CONTINUE TO MONITOR, SEE INTERVENTIONS.
--- NOTE | 2020-06-16 20:36 | NUR ---
ATTEMPTED TO GIVE IV ZOFRAN PER ORDER. IV INFILTRATED WHILE FLUSHING. ATTEMPTED TWICE UNSUCESSFULLY. WILL ATTEMPT AGAIN.
--- NOTE | 2020-06-16 21:09 | NUR ---
PRN ATIVAN GIVEN AT THIS TIME FOR INCREASED AGITIATION AND ANXIETY. WILL MONITOR EFFECT.
--- NOTE | 2020-06-16 21:10 | NUR ---
IV started right forearm with #20 angiocath. The IV site was prepped with Chloraprep. Heparin lock attached. Sterile dressing applied. Patient tolerated precedure well. Procedure performed according to [facility] policy & procedure. SHAUN BASHIR
--- NOTE | 2020-06-16 22:09 | NUR ---
PRN ATIVAN EFFECTIVE. PATIENT IS SLEEPING WITH EASY AND REGULAR RESPERS ON 6L O2 VIA FACE MASK.
--- NOTE | 2020-06-17 00:57 | NUR ---
PRN MORPHINE GIVEN AT THIS TIME FOR AIR HUNGER. WILL CONTINUE TO MONITOR.
--- NOTE | 2020-06-17 02:00 | NUR ---
PATIENT GIVEN BED BATH WITH LINENS CHANGED. PATIENT TURNED. BED IS LOW, LOCKED, ALARMED, AND CALL LIGHT IS WITHIN REACH. WILL CONTINUE TO MONITOR, SEE INTERVENTIONS. FAMILY IS PRESENT.
--- NOTE | 2020-06-17 02:03 | NUR ---
PRN ATIVAN GIVEN AT THIS TIME FOR INCREASED ANXIETY AND AGITATION. WILL MONITOR.
--- NOTE | 2020-06-17 02:32 | NUR ---
CHART CHECK COMPLETE.
--- NOTE | 2020-06-17 03:03 | NUR ---
PRN ATIVAN APPEARS EFFECTIVE. SLEEPING. RESPERS EASY AND REGULAR. CALL LIGHT IS WITHIN REACH.
[2020-06-17 08:00] VITALS: BP 148/86
--- NOTE | 2020-06-17 08:34 | NUR ---
PRN MORPHINE GIVEN AT THIS TIME FOR AIR HUNGER. WILL CONTINUE TO MONITOR.
[2020-06-17 09:31] VITALS: BP 146/65
--- NOTE | 2020-06-17 09:31 | NUR ---
ATROPINE GTTS GIVEN FOR EXTRA SECRETONS. WILL CONTINUE TO MONITOR.
--- NOTE | 2020-06-17 09:50 | NUR ---
PRN MORPHINE GIVEN AT THIS TIME FOR AIR HUNGER. WILL CONTINUE TO MONITOR.
--- NOTE | 2020-06-17 09:52 | NUR ---
DR. VICTOR AND RESIDENTS INTO SEE PATIENT.
--- NOTE | 2020-06-17 10:50 | NUR ---
PRN MORHINE NOT EFFECTIVE. RESPERS LABORED.
--- NOTE | 2020-06-17 12:01 | NUR ---
ATROPINE GTTS GIVEN FOR EXCESS SECRETIONS. WILL CONTINUE TO MONITOR. FAMILY PRESENT AT BEDSIDE.
--- NOTE | 2020-06-17 15:00 | NUR ---
PATIENT MEDICATED WITH IV MORPHINE FOR PAIN AND ATROPINE DROPS. FAMILY AT BEDSIDE.
[2020-06-17 16:00] VITALS: BP 146/81
--- NOTE | 2020-06-17 16:00 | NUR ---
MEDICATION EFFECTIVE FOR PAIN. FAMILY AT BEDSIDE, DENIES ANY NEEDS.
--- NOTE | 2020-06-17 18:49 | NUR ---
MEDICATED WITH IV ATIVAN, MORPHINE, ATROPINE ORDERED PER 'S REQUEST FOR AGITATION, RESPIRATORY DIFFICULTY AND EXCESSIVE SECRETIONS.
--- NOTE | 2020-06-17 22:00 | NUR ---
ATROPINE, IV ATIVAN, AND MORPHINE SUBLINGUAL GIVEN AT THIS TIME FOR MOIST RESPERS, AGITATION, AND AIR HUNGER. WILL CONTINUE TO MONITOR.
--- NOTE | 2020-06-17 22:30 | NUR ---
PRN MORPHINE, ATIVAN, AND ATROPINE APPEAR EFFECTIVE. WILL CONTINUE TO MONITOR.
--- NOTE | 2020-06-17 23:46 | NUR ---
CHART CHECK COMPLETE.
[2020-06-18] VITALS: BP 147/54
--- NOTE | 2020-06-18 02:53 | NUR ---
IV MORPHINE AND ATROPINE GIVEN AT THIS TIME FOR AIR HUNGER AND MOIST RESPERS. WILL CONTINUE TO MONITOR.
--- NOTE | 2020-06-18 03:30 | NUR ---
PRN MEDIATIONS APPEAR EFFECTIVE. WILL CONTINUE TO MONITOR.
--- NOTE | 2020-06-18 04:54 | NUR ---
SUBLINGUAL MORPHINE, IV ATIVAN, AND ATROPINE GIVEN FOR AIR HUNGER, AGITATION, AND MOIST RESPERS. WILL CONTINUE TO MONITOR.
--- NOTE | 2020-06-18 05:30 | NUR ---
PRN MEDICATIONS APPEAR EFFECTIVE. WILL CONTINUE TO MONITOR.
[2020-06-18 08:00] VITALS: BP 139/60
--- NOTE | 2020-06-18 08:07 | NUR ---
TYLENOL SUPPOSITORY GIVEN PER PRN ORDER FOR ELEVATED TEMP. TEMP 102.5 VIA AXILLARY. BLANKETS REMOVED. ICE PACKS PROVIDED. WILL MONITOR EFFECTIVENESS. AT BEDSIDE.
--- NOTE | 2020-06-18 08:07 | NUR ---
IV MORPHINE AND ATIVAN GIVEN PER PRN ORDER FOR S/S DISTRESS AND AGITATION. HR 110. RR 22. WILL MONITOR EFFECTIVENESS. AT BEDSIDE.
--- NOTE | 2020-06-18 08:52 | NUR ---
ATROPINE GTTS PROVIDED FOR EXCESS SECRETIONS. WILL CONTINUE TO MONITOR. SUCTION AT BEDSIDE.
--- NOTE | 2020-06-18 09:07 | NUR ---
MORPHINE AND ATIVAN EFFECTIVE AT THIS TIME. WILL CONTINUE TO MONITOR.
--- NOTE | 2020-06-18 09:47 | NUR ---
Patient is GIP with [facility]. CM will continue to follow for any discharge planning needs.
--- NOTE | 2020-06-18 10:25 | NUR ---
ATROPINE GTTS GIVEN PER PRN ORDER FOR EXCESS SECRETIONS. WILL CONTINUE TO MONITOR.
--- NOTE | 2020-06-18 10:25 | NUR ---
MORPHINE 1MG SL GIVEN PER PRN ORDER FOR AIR HUNGER. WILL MONITOR EFFECTIVENESS.
--- NOTE | 2020-06-18 11:00 | NUR ---
TEMP NOW 101.4 RECTALLY. WILL CONTINUE TO MONITOR. PATIENT BATHED AT THIS TIME.
--- NOTE | 2020-06-18 12:07 | NUR ---
IV MORPHINE 2MG SLOWLY GIVEN PER PRN ORDER FOR AIR HUNGER. RR 23. WILL MONITOR EFFECTIVENESS. ATROPINE GTTS GIVEN AT THIS TIME PER PRN ORDER FOR EXCESS SECRETIONS.
--- NOTE | 2020-06-18 12:36 | NUR ---
IV ATIVAN GIVEN PER PRN ORDER FOR AGITATION. WILL MONITOR EFFECTIVENESS. AT BEDSIDE.
--- NOTE | 2020-06-18 13:11 | NUR ---
MORPHINE SL GIVEN PER PRN ORDER FOR AIR HUNGER. WILL MONITOR EFFECTIVENESS. 02 IN USE VIA FACE MASK AT 6LNC. AT BEDSIDE.
--- NOTE | 2020-06-18 13:30 | NUR ---
HOSPICE NURSE IN TO SEE PATIENT. AT BEDSIDE.
--- NOTE | 2020-06-18 13:41 | NUR ---
IN TO SEE PATIENT.
--- NOTE | 2020-06-18 14:36 | NUR ---
SL MORPHINE GIVEN PER PRN ORDER FOR AIR HUNGER. WILL MONITOR EFFECTIVENESS. IV ATIVAN ALSO GIVEN PER PRN ORDER FOR ANXIETY. WILL MONITOR EFFECTIVNESS. AT BEDSIDE.
--- NOTE | 2020-06-18 15:36 | NUR ---
PRN MEDS APPEAR EFFECTIVE AT THIS TIME. WILL CONTINUE TO MONITOR.
[2020-06-18 16:00] VITALS: BP 126/51
--- NOTE | 2020-06-18 16:11 | NUR ---
MORPHINE GIVEN PER PRN ORDER FOR AIR HUNGER. WILL MONITOR EFFECTIVENESS. AT BEDSIDE.
--- NOTE | 2020-06-18 17:11 | NUR ---
EARLIER MEDS APPEAR EFFECTIVE AT THIS TIME. WILL CONTINUE TO MONITOR.
--- NOTE | 2020-06-18 18:06 | NUR ---
IV ATIVAN GIVEN FOR AGIATION. ATROPINE GTTS GIVEN FOR EXCESS SECRETIONS. AT BEDSIDE. WILL MONITOR EFFECTIVENESS.
--- NOTE | 2020-06-18 18:07 | NUR ---
SL MORPHINE GIVEN FOR AIR HUNGER. WILL MONITOR EFECTIVENESS.
--- NOTE | 2020-06-18 19:07 | NUR ---
PRN MEDS APPEAR EFFECTIVE AT THIS TIME. WILL CONTINUE TO MONITOR.
--- NOTE | 2020-06-18 20:46 | NUR ---
PRN IV ATIVAN, MORPHINE, AND ATROPINE DROPS GIVEN AT THIS TIME. WILL CONTINUE TO MONITOR.
--- NOTE | 2020-06-18 21:30 | NUR ---
PRN MEDICATIONS APPEAR EFFECTIVE. CALL LIGHT IS WITHIN REACH.
--- NOTE | 2020-06-18 22:57 | NUR ---
PRN SL MORPHINE, IV ATIVAN, AND ATROPINE DROPS GIVEN AT THIS TIME. WILL CONTINUE TO MONITOR.
--- NOTE | 2020-06-18 23:15 | NUR ---
PRN MEDICATIONS APPEAR EFFECTIVE. CALL LIGHT IS WITHIN REACH.
--- NOTE | 2020-06-18 23:55 | NUR ---
PRN IV MORPHINE AND ATIVAN GIVEN AT THIS TIME. WILL CONTINUE TO MONITOR.
[2020-06-19] VITALS: BP 125/52
--- NOTE | 2020-06-19 00:15 | NUR ---
PRN MEDICATIONS APPEAR EFFECTIVE. CALL LIGHT IS WITHIN REACH.
--- NOTE | 2020-06-19 01:02 | NUR ---
PRN SL MORPHINE AND IV ATIVAN GIVEN AT THIS TIME. WILL CONTINE TO MONITOR.
--- NOTE | 2020-06-19 01:45 | NUR ---
PRN MEDICATIONS APPEAR EFFECTIVE. CALL LIGHT IS WITHIN REACH.
--- NOTE | 2020-06-19 02:22 | NUR ---
CHART CHECK COMPLETE.
--- NOTE | 2020-06-19 04:37 | NUR ---
PRN IV ATIVAN, MORPHINE, AND ATROPINE DROPS GIVEN AT THIS TIME. WILL MONITOR EFFECTT.
--- NOTE | 2020-06-19 05:00 | NUR ---
PRN MEDICATIONS APPEAR EFFECTIVE. CALL LIGHT IS WITHIN REACH.
--- NOTE | 2020-06-19 07:10 | NUR ---
PATIENT'S CAME TO NURSES STATION REGARDING PATIENT NO LONGER BREATHING. ABSENCE OF VITALS WAS CONFIRMED BY 2 RN'S AT THIS TIME. PATIENT WAS ADMITTED UNDER [facility]. CODE STATUS: DNR-CC. AT BEDSIDE. CLERK SPECIALIST NOTIFIED AND NOTIFED.
--- NOTE | 2020-06-19 07:20 | NUR ---
EDUCATION PARAPROFESSIONAL NOTIFIED OF AT THIS TIME
--- NOTE | 2020-06-19 07:30 | NUR ---
[facility] NOTIFIED AT THIS TIME.
--- NOTE | 2020-06-19 07:41 | NUR ---
SPOKE WITH TY FROM ONE CALL. BODY RELEASED REFERAL #[id number].
--- NOTE | 2020-06-19 09:55 | NUR ---
BODY TO BE RELEASED TO [facility] AT THIS TIME. BELONGINGS SENT HOME WITH FAMILY.
== END 2020-06-19 09:55 | disposition expired | DRG 682 ==
LOC: EDHOLD 16:19 → 5E 16:19
PROVIDERS: ADMIT Internal Medicine; ATTEND Internal Medicine
DX: N17.0 Acute kidney failure with tubular necrosis (principal); J96.21 Acute and chronic respiratory failure with hypoxia; J96.22 Acute and chronic respiratory failure with hypercapnia; E44.0 Moderate protein-calorie malnutrition; E11.65 Type 2 diabetes mellitus with hyperglycemia; I50.9 Heart failure, unspecified; E78.1 Pure hyperglyceridemia; E11.43 Type 2 diabetes mellitus with diabetic autonomic (poly)neuropathy; Z51.5 Encounter for palliative care; F29 Unspecified psychosis not due to a substance or known physiological condition; G47.33 Obstructive sleep apnea (adult) (pediatric); D64.9 Anemia, unspecified; I11.0 Hypertensive heart disease with heart failure; K21.9 Gastro-esophageal reflux disease without esophagitis; F41.9 Anxiety disorder, unspecified; I25.10 Atherosclerotic heart disease of native coronary artery without angina pectoris; F32.9 Major depressive disorder, single episode, unspecified; Z79.4 Long term (current) use of insulin; Z99.81 Dependence on supplemental oxygen; I25.2 Old myocardial infarction; Z90.49 Acquired absence of other specified parts of digestive tract; Z88.0 Allergy status to penicillin; Z88.8 Allergy status to other drugs, medicaments and biological substances; Z79.82 Long term (current) use of aspirin; Z79.899 Other long term (current) drug therapy